=== PATIENT | female | born 1940 | race Caucasian/White ===

== ENCOUNTER 2017-11-23 06:39 | Day surgery (SDC) | payer MEDICARE, SELFPAY ==
[2017-11-11 16:18] VITALS: BMI 22.2
[2017-11-23] VITALS (10 sets, daily range): BP systolic 143–198; BP diastolic 75–85; PULSE 55–61; RESP 12–16; TEMP 36–36.9; O2SAT 95–100; BMI 22.2
--- NOTE | 2017-11-23 07:11 | PM.PREOP ---
Pre-operative Note Interval Note Pre-op Check: History & Physical Reviewed by Physician
[2017-11-23] MEDS: LACTATED RINGERS 1,000 ML 100 ML IV (07:32)
[2017-11-23] MEDS: CEFAZOLIN 2 GM/100 ML FROZ.PIGGY IV (07:56)
--- NOTE | 2017-11-23 08:36 | SUR.OPER ---
Lithotomy on padded OR bed, head on pillow, arms secured on padded arm boards at <90 degrees abduction. Legs secured in padded yellow fins stirrups.
[2017-11-23] MEDS: BUPIVACAINE 0.25% W/ EPI 50 ML VIAL INJ (08:42)
[2017-11-23] MEDS: SODIUM CHLORIDE 0.9% 100 ML INJ (08:48)
--- NOTE | 2017-11-23 09:51 | SUR.PHASEI ---
pt arrived from surgery. Currently awake and alert. dr Dillard into see pt. No complaints voiced. pt pleasant and cooperative.
[2017-11-23] MEDS: OXYCODONE/ACETAMINOPHEN 5/325 TABLET 1 TAB PO (09:57)
--- NOTE | 2017-11-23 10:39 | SUR.PHASEII ---
pt arrived tp opd from pacu, bed low locked call chang in hand, drinking fluids, denies pain.
--- NOTE | 2017-11-23 10:40 | SUR.PHASEII ---
dockery with pink tinged urine, no clots.
--- NOTE | 2018-02-18 14:22 | P.OP_ITS ---
Operative Date/Time/Diagnoses Date of procedure: 11/23/17 Time of procedure: 09:50 Post-op diagnosis: same Procedure: Procedures Operation Date: 11/23/17 07:45 Actual Procedures Side Surgeon p TVT W/Cystoscopy Maria R Dillard MD TVT with cystoscopy Indications: Stress urinary incontinence Increased urethrovesical angle with Valsalva Surgeon: Maria R Dillard [facility] Former: [facility] Anesthesia Type: General Operative Notes Findings: On cystoscopy, TVT not in the bladder Closure Type: primary Specimen(s): none Applied: catheter Estimated blood loss (mL): 10 Blood products transfused: none Procedure in detail: The patient was taken to the operating room where she was placed in the dorsal supine position. After adequate general tracheal anesthesia was achieved, she was placed in the dorsal lithotomy position, and prepped and draped in the usual sterile fashion. A time-out was performed. A weighted speculum was placed into the vagina. The patient's eyes were placed parallel to the floor. The midline on the patient's abdomen was marked. 100 cc of sterile saline mixture with 0.25% Marcaine was injected behind the pubic symphysis into the space of Retzius, after the bladder had been emptied. This was performed with a spinal needle. Attention was then turned to the vagina. 5 cc of 0.25% Marcaine with epinephrine were injected submucosally in the midline approximately 2 cm away from the urethral meatus. A 1 cm incision was made approximately 1-1/2 cm away from the urethral meatus. This was dissected out laterally with a Metzenbaum scissors. A rigid catheter was placed into the bladder. With the bladder neck retracted away from the patient's right side, 10 cc of 0.25% Marcaine with epinephrine were injected along the path of the DVT. This space was then dissected to the 7. Hegar dilator. This was repeated on the patient's left side with the bladder neck retracted away from the patient's left side. The TVT was directed toward the patient's right shoulder after the bladder neck risks retracted away from the patient's right side. The urogenital diaphragm was perforated and the DVT directed up behind the pubic symphysis to exit the skin approximately 2- 2 1/2 cm away from the midline. All of this was repeated on the patient's left side after the left space had been dissected. And the bladder neck retracted away from the patient' s left side. The rigid portion of the catheter was removed from the bladder. The bladder was filled with 240 cc of sterile saline. Cystoscopy was performed and the TVT was in the bladder on the left side. The bladder was drained. The TVT was redirected on the patient's left side directed towards the left shoulder, perforating the urogenital diaphragm, and then coming up behind the pubic symphysis. The bladder was refilled and a cystoscopy was performed which revealed the TVT not in the bladder on the left side. The bladder was drained. The TVT was pulled up with care not to over tighten below the urethra. The patient was made to cough there are initially was some small leakage of urine. The TVT was pulled slightly tighter. On the next cough there was just 1 drop of urine. The excess TVT was cut below the skin line on the abdomen. The vaginal mucosa was closed with 4 O Vicryl in a running interlocking fashion. The urine was clear at the end of the case. A Rea catheter remained in the bladder. Sponge, lap, and instrument counts were correct x2. The patient tolerated the procedure well, and was taken to PACU in stable condition Complications: none Post-operative Condition: stable Disposition: PACU Plan for aftercare: Home after recovery
== END 2017-11-23 11:25 | disposition home or self-care (01) ==
PROVIDERS: PCP Internal Medicine; Visit Provider Obstetrics & Gynecology
PROC: 0TSD0ZZ Reposition Urethra, Open Approach (ICD-10-PCS; CPT 57288; principal; 2017-11-23 07:45)
DX: Z87.891 Personal history of nicotine dependence (principal); I10 Essential (primary) hypertension; E03.9 Hypothyroidism, unspecified
CPT/HCPCS: 57288; J0690; J2405; J2704; J3010

== ENCOUNTER 2017-11-24 22:20 | Emergency (ER) | payer MEDICARE, SELFPAY ==
[2017-11-24 22:22] VITALS: BP 113/67; PULSE 65; RESP 14; O2SAT 100; BMI 22.1
--- NOTE | 2017-11-24 23:15 | PC.NURSE ---
Pt states she had bladder tuck surgery yesterday and has indwelling Rea cathether. States there is debris in the drainage bag and for 45 min she did not have any drainage. Requesting to have catheter flushed out. Reports her bladder feels distended. Scant amount of small red sediment noted in the Rea drainage bag. Denies any pain or any other symptoms.
[2017-11-25 00:20] LABS: Appearance Urine UA SL CLOUDY; Bilirubin Urine UA NEGATIVE (NEGATIVE); Color Urine UA YELLOW; Glucose Urine UA NEGATIVE (Normal); Ketones Urine UA NEGATIVE (NEGATIVE); Leukocyte Esterase Urine UA NEGATIVE (NEGATIVE); Nitrite Urine UA Negative (Negative); Occult Blood Urine UA 3+ (Negative); Protein Urine UA 1+ (Negative); Urobilinogen Urine UA 0.2 E.U./dL (0.2)
[2017-11-25 00:22] LABS: RBC Urine 30-100/HPF (0-5/HPF); Squamous Epithelial Cell Urine 0-1 /HPF; WBC Urine 0-1/HPF (0-5/HPF)
[2017-11-25 00:23] LABS: Bacteria Urine Few (2-10); Culture Indicated Urine Specimen Cultured; Hyaline Casts Urine 0-1/LPF
--- NOTE | 2017-12-11 10:08 | ED.FEMALEGU ---
HPI - Female Genitourinary General Chief complaint: Urogenital-Female Stated complaint: urinary catheter not draining. History of Present Illness HPI Narrative: HPI 77-year-old female presents for management of a nondraining Rea catheter that was placed one day prior during a bladder suspension surgery. Cather is not trained for one hour. Patient notes mild suprapubic discomfort. Patient denies fevers, chills, or worsening pain. ROS with no recent constitutional symptoms. Exam Gen: Pleasant, nontoxic-appearing, resting comfortably. HEENT: NC, AT, PEERL, EOMI. Resp: Unlabored respirations with a normal work of breathing. Card: Extremities warm and well perfused. GI: Non-distended. : mild suprapubic tenderness to palpation. MSK: No visible deformities, strength and tone without visually appreciable deficit. Neuro: AO x 3, no facial asymmetry, vision and hearing WNL. Heme/Lymph: Deferred Skin: Normal color with no visible lesions (other than noted above). Psych: Mood and affect appropriate. MDM Previous chart, nursing note, and vitals reviewed. A/P: 77-year-old female presents for management of a nondraining Rea catheter that was placed one day prior during a bladder suspension surgery. UA ordered, Rea catheter irrigated, patient with good urine drainage. Patient eloped from the emergency department prior to completion of care or urinalysis resulting. Given her absence of fever, chills, malaise, or for their findings clearly suggestive of urinary tract infection antibiotics were not prescribed. Patient to follow up with her [facility]. Impression: obstructed Rea catheter (please reference below for remainder of encounter information) Related Data Home Medications Medication Instructions Recorded Confirmed BIOTIN 1,000 mcg PO QDAY #0 02/28/16 12/07/17 ascorbic acid (vitamin C) 500 mg PO QDAY #0 tab 02/28/16 12/07/17 bupropion HCl [Wellbutrin SR] 100 mg PO QDAY #0 02/28/16 12/07/17 cholecalciferol (vitamin D3) 1 tab PO QDAY #0 05/09/16 12/07/17 [Vitamin D3] levothyroxine 88 mcg PO QAM #0 05/09/16 12/07/17 atorvastatin 10 mg PO DAILY 11/23/17 12/07/17 levothyroxine 25 mcg PO DAILY 11/23/17 12/07/17 Previous Rx's Medication Instructions Recorded oxycodone-acetaminophen [Percocet] 1 tab PO Q4-6H PRN #20 tab 11/23/17 Allergies Allergy/AdvReac Type Severity Reaction Status Date / Time Sulfa (Sulfonamide Allergy Mild FEELS Verified 12/07/17 13:20 Antibiotics) LIKE BLOOD IS BOILING PFSH Medical History Anterolisthesis (Chronic) Concussion (Chronic) Cystocele (Chronic) Depression (Chronic) GERD (gastroesophageal reflux disease) (Chronic) Hypertension (Chronic) Hyperthyroidism (Chronic 2012) Hypothyroidism (Chronic) Lumbar spondylosis (Chronic) Migraine headache (Chronic) Rectocele (Chronic) OLVIN (stress urinary incontinence, female) (Chronic) Uterine prolapse (Chronic) Hormone receptor positive breast cancer (Resolved 2013) Postmenopausal (Resolved) Surgical History History of lumpectomy (Resolved 2013) Social History household members: none Smoking Status: Former smoker alcohol intake: current Exam Initial Vital Signs Initial Vital Signs: Vital Signs Pulse Rate 65 11/24/17 22:22 Respiratory Rate 14 11/24/17 22:22 Blood Pressure 113/67 11/24/17 22:22 Pulse Oximetry 100 11/24/17 22:22 MDM - Female Genitourinary Lab Data Lab Results 11/24/17 Range/Units 23:45 Urine Color Yellow Urine Appearance Sl cloudy Urine pH 5.0 (4.5-8.0) Ur Specific Justice 1.010 (1.000-1.035) Urine Protein 1+ H (Negative) Urine Glucose (UA) Negative (Normal) g/dL Urine Ketones Negative (NEGATIVE) Urine Occult Blood 3+ H (Negative) Urine Nitrate Negative (Negative) Urine Bilirubin Negative (NEGATIVE) Urine Urobilinogen 0.2 (0.2) E.U./dL Ur Leukocyte Esterase Negative (NEGATIVE) Urine RBC 30-100/hpf H (0-5/HPF) Urine WBC 0-1/hpf (0-5/HPF) Ur Squamous Epith Cells 0-1 /hpf Urine Bacteria Few (2-10) H (None) Hyaline Casts 0-1/lpf (None) Ur Culture Indicated? Specimen cultured Micro UA Comment Not Reportable Discharge Plan Departure Patient Disposition: Left Against Medical Advice Discharge Date/Time: 11/25/17 00:44 Interventions: ED Discharge Assessment Last Done: 11/25/17 00:42 Prescriptions: No Action bupropion HCl [Wellbutrin SR] 100 MG tablet extended release 12 hr 100 mg PO QDAY Qty: 0 RF: 0 ascorbic acid (vitamin C) 500 MG tablet 500 mg PO QDAY Qty: 0 RF: 0 BIOTIN 1,000 mcg PO QDAY Qty: 0 RF: 0 levothyroxine 88 MCG tablet 88 mcg PO QAM Qty: 0 RF: 0 cholecalciferol (vitamin D3) [Vitamin D3] 2,000 UNIT tablet 1 tab PO QDAY Qty: 0 RF: 0 atorvastatin 10 mg tablet 10 mg PO DAILY RF: 0 levothyroxine 50 mcg tablet 25 mcg PO DAILY RF: 0 oxycodone-acetaminophen [Percocet] 5-325 mg tablet 1 tab PO Q4-6H PRN (Reason: pain) Qty: 20 RF: 0 Stand Alone Forms: Against Medical Advice
== END 2017-11-25 00:44 | disposition left against medical advice (07) ==
PROVIDERS: Emergency Provider Emergency Medicine; Family Provider Internal Medicine; PCP Internal Medicine; Referring Provider Obstetrics & Gynecology
DX: T83.091A Other mechanical complication of indwelling urethral catheter, initial encounter (principal)
CPT/HCPCS: 51700; 51798; 81001; 87086; 99283

== ENCOUNTER → 2017-11-30 17:13 | Outpatient (CLI) | payer MEDICARE, SELFPAY | PROVIDERS: Family Provider Internal Medicine; PCP Internal Medicine; Visit Provider Obstetrics & Gynecology | DX: R32 Unspecified urinary incontinence (principal) | CPT/HCPCS: 87086 ==

== ENCOUNTER → 2017-12-04 09:48 | Outpatient (CLI) | payer MEDICARE, SELFPAY ==
[2017-12-04 11:49] LABS: Thyroid Stimulating Hormone 3.64 uIU/mL (0.47-4.68)
== END ==
PROVIDERS: PCP Internal Medicine; Visit Provider Internal Medicine
DX: E03.9 Hypothyroidism, unspecified (principal)
CPT/HCPCS: 36415; 84443

== ENCOUNTER → 2018-02-04 08:33 | Outpatient (CLI) | payer MEDICARE, SELFPAY ==
[2018-02-04 10:04] LABS: Alanine Aminotransferase 21 IU/L (9-52); Aspartate Aminotransferase 24 IU/L (14-36); BUN Creatinine Ratio 15.7 (6-22); Blood Urea Nitrogen 11 mg/dL (7-17); Calcium 9.8 mg/dL (8.4-10.2); Carbon Dioxide 30 mmol/L (22-32); Chloride 100 mmol/L (98-107); Cholesterol 254 mg/dL (140-199); Estimated Glomerular Filt Rate > 60.0 mL/min (>60); Glucose 99 mg/dL (80-110); HDL Cholesterol 84 mg/dL (40-60); HEMOLYSIS < 15 (0-50); LDL Cholesterol Calculated 150 mg/dL (<100); Potassium 4.8 mmol/L (3.4-5.1); Sodium 139 mmol/L (137-145); Triglycerides 98 mg/dL (35-150)
[2018-02-04 10:34] LABS: TSH w/ Reflex to FT4 6.15 uIU/mL (0.47-4.68)
[2018-02-04 11:37] LABS: Free T4, Direct Thyroxine 0.98 ng/dL (0.78-2.19)
== END ==
PROVIDERS: Family Provider Internal Medicine; PCP Internal Medicine; Visit Provider Internal Medicine
DX: E03.9 Hypothyroidism, unspecified (principal); E78.5 Hyperlipidemia, unspecified; Z00.00 Encounter for general adult medical examination without abnormal findings
CPT/HCPCS: 36415; 80048; 80061; 84439; 84443; 84450; 84460

== ENCOUNTER → 2018-04-28 09:39 | Outpatient (CLI) | payer MEDICARE, SELFPAY | PROVIDERS: PCP Internal Medicine; Visit Provider Obstetrics & Gynecology | DX: E03.9 Hypothyroidism, unspecified (principal) | CPT/HCPCS: 81001; 87086 ==

== ENCOUNTER → 2018-04-28 10:06 | Outpatient (CLI) | payer MEDICARE, SELFPAY ==
[2018-04-28 11:07] LABS: Appearance Urine UA CLOUDY; Bilirubin Urine UA NEGATIVE (NEGATIVE); Color Urine UA YELLOW; Glucose Urine UA NEGATIVE (Normal); Ketones Urine UA NEGATIVE (NEGATIVE); Leukocyte Esterase Urine UA 2+ (NEGATIVE); Nitrite Urine UA NEGATIVE (Negative); Occult Blood Urine UA 3+ (Negative); Protein Urine UA 2+ (Negative); Specific Gravity Urine UA 1.025 (1.000-1.035); Urobilinogen Urine UA 0.2 E.U./dL (0.2)
[2018-04-28 11:35] LABS: Bacteria Urine Moderate (10-30); Culture Indicated Urine Specimen Cultured; RBC Urine >100/HPF (0-5/HPF); WBC Urine >100/HPF (0-5/HPF)
[2018-04-28 12:39] LABS: TSH w/ Reflex to FT4 2.24 uIU/mL (0.47-4.68)
== END ==
PROVIDERS: Obstetrics & Gynecology; Family Provider Internal Medicine; PCP Internal Medicine; Visit Provider Internal Medicine
DX: E03.9 Hypothyroidism, unspecified (principal)
CPT/HCPCS: 36415; 81001; 84443; 87077; 87086; 87186

== ENCOUNTER → 2018-05-24 12:30 | Outpatient (CLI) | payer MEDICARE, SELFPAY ==
--- NOTE | 2018-05-24 | DI.RAD.S_ITS ---
PROCEDURE: XR CHEST 2V INDICATIONS: Acute bronchitis, unspecified TECHNIQUE: 2 views of the chest were acquired. COMPARISON: [facility], , CHEST 2 VIEW, 10/06/2007, 10:11. FINDINGS: Surgical changes and devices: None. Lungs and pleura: No pleural effusions or pneumothorax. Lungs are clear. Mediastinum: Mediastinal contours are normal. Heart size is normal. Bones and chest wall: No suspicious bony abnormalities. Soft tissues appear unremarkable. IMPRESSION: No acute cardiopulmonary pathology. Dictated by: Shivam Pantoja M.D. on 05/24/2018 at 13:19 Approved by: Shivam Pantoja M.D. on 05/24/2018 at 13:22
== END ==
PROVIDERS: Family Provider Internal Medicine; PCP Internal Medicine; Visit Provider Student in an Organized Health Care Education/Training Program
DX: J20.9 Acute bronchitis, unspecified (principal)
CPT/HCPCS: 71046

== ENCOUNTER → 2018-07-21 09:19 | Outpatient (CLI) | payer MEDICARE, SELFPAY ==
--- NOTE | 2018-07-21 | DI.MRI.S_ITS ---
PROCEDURE: MR SHOULDER RT WO CON INDICATIONS: PAIN IN RIGHT SHOULDER TECHNIQUE: Noncontrast oblique coronal T2 fast spin echo with fat saturation, oblique sagittal T1 spin echo and T2 fast spin echo with fat saturation, axial T1 spin echo and T2 fast spin echo with fat saturation through the shoulder. COMPARISON: None. FINDINGS: Image quality: Excellent. Rotator cuff: There is high-grade partial-thickness versus full-thickness tear of the supraspinatus tendon along both articular and bursal surfaces. The infraspinatus, and subscapularis tendons appear intact throughout but is thickened and heterogeneous in signal consistent with tendinitis. Sagittal images demonstrate no muscle atrophy. Bones and bursae: No bone marrow contusions or fractures. There is severe acromioclavicular joint degeneration and moderate glenohumeral joint degeneration. The acromion demonstrates conventional anatomy, without an os acromiale. There is a small amount of subacromial-subdeltoid or subcoracoid bursal fluid, consistent with mild bursitis. Capsule and soft tissues: There is degenerative fraying of the superior labrum. In the absence of intra-articular contrast, the glenohumeral ligaments appear intact. The long head of the biceps tendon demonstrates normal location and morphology. The rotator interval appears normal, without fibrosis. The coracohumeral ligament is normal in thickness. IMPRESSION: 1. High-grade partial-thickness versus full-thickness tear of the supraspinatus tendon. 2. Infraspinatus and subscapularis tendinitis. 3. 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 4. Degenerative tear of the superior labrum. 5. Mild subacromial/subdeltoid bursitis. Dictated by: Annabel Barba M.D. on 07/21/2018 at 10:54 Approved by: Annabel Barba M.D. on 07/22/2018 at 9:56
== END ==
PROVIDERS: Family Provider Internal Medicine; PCP Internal Medicine; Visit Provider Internal Medicine
DX: M25.511 Pain in right shoulder (principal); M75.101 Unspecified rotator cuff tear or rupture of right shoulder, not specified as traumatic; M75.91 Shoulder lesion, unspecified, right shoulder; M19.011 Primary osteoarthritis, right shoulder; S43.491A Other sprain of right shoulder joint, initial encounter; M75.51 Bursitis of right shoulder
CPT/HCPCS: 73221

== ENCOUNTER 2018-08-25 07:05 | Day surgery (SDC) | payer MEDICARE, SELFPAY ==
[2018-08-25] VITALS (7 sets, daily range): BP systolic 134–164; BP diastolic 77–87; PULSE 63–68; RESP 13–18; TEMP 36.2–36.8; O2SAT 92–99; BMI 22.6
[2018-08-25] MEDS: SODIUM CHLORIDE 0.9% 1,000 ML 100 ML IV (07:34)
--- NOTE | 2018-08-25 08:31 | PM.HP.1 ---
History of Present Illness Chief complaint: [id number] Patient History Medical History Anterolisthesis (Chronic) Concussion (Chronic) Cystocele (Chronic) Depression (Chronic) GERD (gastroesophageal reflux disease) (Chronic) Hypertension (Chronic) Hyperthyroidism (Chronic 2012) Hypothyroidism (Chronic) Lumbar spondylosis (Chronic) Migraine headache (Chronic) Rectocele (Chronic) OLVIN (stress urinary incontinence, female) (Chronic) Uterine prolapse (Chronic) Hormone receptor positive breast cancer (Resolved 2013) Postmenopausal (Resolved) Surgical History History of lumpectomy (Resolved 2013) Social History household members: none Smoking Status: Former smoker alcohol intake: current Family & Social History Social History: household members none Tobacco & Substance use: Smoking Status Former smoker alcohol intake current alcohol intake frequency 0-2 drinks per day Substance Use Type does not use Meds Home Medications Medication Instructions Recorded Confirmed Type BIOTIN 1,000 mcg PO QDAY #0 02/28/16 03/02/18 History ascorbic acid (vitamin C) 500 mg PO QDAY #0 tab 02/28/16 03/02/18 History cholecalciferol (vitamin D3) 1 tab PO QDAY #0 05/09/16 03/02/18 History [Vitamin D3] oxybutynin chloride 5 mg tablet 2.5 mg PO Q12H #20 tab 01/05/18 03/02/18 Rx levothyroxine 50 mcg tablet 25 mcg PO DAILY 03/02/18 03/02/18 History mirabegron ER 25 mg 25 mg PO DAILY #30 tab 06/22/18 Rx tablet,extended release 24 hr bupropion HCl SR 100 mg tablet,12 100 mg PO BID #0 each 07/21/18 07/21/18 History hr sustained-release Allergies Allergy/AdvReac Type Severity Reaction Status Date / Time Sulfa (Sulfonamide Allergy Mild FEELS Verified 03/02/18 11:02 Antibiotics) LIKE BLOOD IS BOILING Exam Vital Signs (past 8 hours): - 08/25/18 07:20 Temperature 98.3 F Pulse Rate 63 Respiratory Rate 15 Blood Pressure 164/77 H Pulse Oximetry 94 Oxygen Delivery Method Room Air Narrative Exam Narrative: Awake alert oriented x3, no acute distress, regular rate rhythm, abdomen soft nontender nondistended, no lower extremity edema Assessment & Plan Assessment & Plan narrative: Dysphagia for EGD
[2018-08-25] MEDS: fentaNYL 250 MCG/5 ML INJ IV (08:39)
[2018-08-25] MEDS: MIDAZOLAM 5 MG/5 ML VIAL IV (08:39)
--- NOTE | 2018-08-25 08:57 | PM.OP.ENDO ---
Operative Date/Time/Diagnoses Date of procedure: 08/25/18 Procedure & Clinicians Study performed: EGD with dilation Indications: Dysphagia, GERD Moderate conscious sedation was administered by the endoscopy nurse and supervised by the endoscopist. The following parameters were monitored: Oxygen saturation, heart rate, blood pressure, and response to care. Procedure Notes Procedure in detail: Prior to the procedure, history and physical was performed, and patient medications and allergies were reviewed. Preprocedure nursing history and assessment was reviewed. Patient identification and proposed procedure were verified by the physician and nurse in the procedure room. The physical status of the patient was reassessed after the procedure. After informed consent was obtained including risks, benefits, and alternatives, the scope was passed under direct vision. Throughout the procedure, the patient's blood pressure, pulse, and oxygen saturations were monitored continuously. The upper endoscope was introduced through the mouth and advanced to the 2nd portion of the duodenum. Retroflexion was performed in the stomach. The patient tolerated the procedure well. The upper and middle thirds of the esophagus were normal appearing. At the lower esophagus, a mild, nonobstructing Schatzki's ring was noted. This was dilated with a 48 Tristanian followed by 51 Tristanian Savary dilator. The patient did not tolerate the 54 Tristanian dilator. So, a balloon dilator was used to dilate the Schatzki's ring up to 18 mm. The entire stomach was normal appearing The entire examined duodenum was normal appearing Impression: Mild, nonobstructing Schatzki's ring at the lower esophagus. Dilated up to 18 mm Normal appearing stomach Normal-appearing 1st and 2nd portions of the duodenum Sedation minutes: 21 Plan for aftercare: Recommendations: Resume home medications Follow anti-reflux diet and lifestyle Follow-up in GI clinic as previously scheduled Discharge home with escort
--- NOTE | 2018-08-25 09:48 | SUR.PHASEII ---
Pleasant, cheerful, tolerating PO well. Acknowledges that she has all of her belongings. complimentary of staff. Clothing given; ride is on the way.
== END 2018-08-25 09:50 | disposition home or self-care (01) ==
PROVIDERS: Family Provider Internal Medicine; PCP Internal Medicine; Visit Provider Internal Medicine
PROC: 0DJ08ZZ Inspection of Upper Intestinal Tract, Via Natural or Artificial Opening Endoscopic (ICD-10-PCS; CPT 43235; principal; 2018-08-25 08:30)
DX: K22.2 Esophageal obstruction (principal); K21.9 Gastro-esophageal reflux disease without esophagitis
CPT/HCPCS: 43248; J2250; J3010

== ENCOUNTER → 2018-09-08 10:36 | Outpatient (CLI) | payer MEDICARE, SELFPAY ==
[2018-09-08 11:14] LABS: Cholesterol 256 mg/dL (140-199); HDL Cholesterol 84 mg/dL (40-60); LDL Cholesterol Calculated 153 mg/dL (<100); Triglycerides 97 mg/dL (35-150)
== END ==
PROVIDERS: PCP Internal Medicine; Visit Provider Internal Medicine
DX: E78.5 Hyperlipidemia, unspecified (principal)
CPT/HCPCS: 36415; 80061

== ENCOUNTER → 2018-10-20 11:12 | Outpatient (CLI) | payer MEDICARE, SELFPAY ==
--- NOTE | 2018-10-20 | DI.MG.S_ITS ---
BILATERAL DIGITAL SCREENING MAMMOGRAM 3D/2D WITH CAD: 10/20/2018 CLINICAL: Routine screening. Personal history of right breast cancer. Comparison is made to exams dated: 11/21/2016 mammogram, 06/25/2017 mammogram - [facility], and 05/21/2016 mammogram - [facility]. The tissue of both breasts is heterogeneously dense. This may lower the sensitivity of mammography. Current study was also evaluated with a Computer Aided Detection (CAD) system. There are benign post operative findings in the right breast. No significant masses, calcifications, or other findings are seen in either breast. There has been no significant interval change. IMPRESSION: There is no mammographic evidence of malignancy. A 1 year screening mammogram is recommended. This exam was interpreted at Station ID: [id number]. NOTE: For mammograms, a report in lay terms will be sent to the patient. Approximately 15% of breast malignancies will not be visualized mammographically. In the management of a palpable breast mass, a negative mammogram must not discourage biopsy of a clinically suspicious lesion. Electronically Signed By: Abraham chiu/darian:10/20/2018 11:43:39 copy to: COMPA DIAZ letter sent: Normal Exam ACR BI-RADS Category 2: Benign Finding(s) [id number]
== END ==
PROVIDERS: PCP Internal Medicine; Referring Provider Internal Medicine; Visit Provider Internal Medicine
DX: Z12.31 Encounter for screening mammogram for malignant neoplasm of breast (principal); Z85.3 Personal history of malignant neoplasm of breast
CPT/HCPCS: 77063; 77067

== ENCOUNTER → 2018-11-19 14:15 | Outpatient (CLI) | payer MEDICARE, SELFPAY ==
[2018-11-19 15:10] LABS: Alanine Aminotransferase 16 IU/L (9-52); Albumin 4.4 g/dL (3.5-5.0); Albumin Globulin Ratio 1.6 (1.0-2.8); Alkaline Phosphatase 88 U/L (38-126); Aspartate Aminotransferase 25 IU/L (14-36); BUN Creatinine Ratio 24.3 (6-22); Bilirubin Total 0.5 mg/dL (0.2-1.3); Blood Urea Nitrogen 17 mg/dL (7-17); Calcium 9.6 mg/dL (8.4-10.2); Carbon Dioxide 27 mmol/L (22-32); Chloride 100 mmol/L (98-107); Cholesterol 259 mg/dL (140-199); Estimated Glomerular Filt Rate > 60.0 mL/min (>60); Globulin 2.7 g/dL (1.7-4.1); Glucose 96 mg/dL (80-110); HDL Cholesterol 80 mg/dL (40-60); HEMOLYSIS < 15 (0-50); LDL Cholesterol Calculated 127 mg/dL (<100); Potassium 4.6 mmol/L (3.4-5.1); Sodium 137 mmol/L (137-145); Total Protein 7.1 g/dL (6.3-8.2); Triglycerides 259 mg/dL (35-150)
[2018-11-19 16:17] LABS: Free T4, Direct Thyroxine 0.73 ng/dL (0.78-2.19)
[2018-11-19 20:38] LABS: Free T3, Triiodothyronine Free 3.01 pg/mL (2.77-5.27)
== END ==
PROVIDERS: PCP Internal Medicine; Visit Provider Internal Medicine
DX: E03.9 Hypothyroidism, unspecified (principal); E78.5 Hyperlipidemia, unspecified; R53.83 Other fatigue
CPT/HCPCS: 36415; 80053; 80061; 84439; 84443; 84481

== ENCOUNTER → 2018-11-24 07:55 | Outpatient (CLI) | payer MEDICARE, SELFPAY ==
--- NOTE | 2018-11-24 | DI.ECHO.S_ITS ---
[facility]---------+ [facility] +---------+ : : [address] [place] : : : : [id number] : : : : Phone: [phone] Echocardiogram Report + + :Name: MARY ECHEVERRIA Study Date: 11/24/2018 Height: 66 in : :[facility] Weight: 140 lb : : Gender: Female BSA: 1.7 m2 : :: 1940 Age: 78 yrs BP: 150/73 mmHg: :Reason For Study: FATIGUE : : Performed By: Awais Caputo : :Referring: SOCORRO EPPERSON : + + Interpretation Summary 1) Normal left ventricular thickness, size, wall motion, and systolic function (EF 60-65%). 2) Normal right ventricular size and function. 3) No significant valvular abnormalities. 4) No prior Echo available for comparison. Procedure: A two-dimensional transthoracic echocardiogram with color flow and Doppler was performed. The study quality was technically good. There is no prior echocardiogram noted for this patient. The patient received her shingles immunization 01/09 and says she has felt fatigued ever since. The patient was in normal sinus rhythm during the exam. Left Ventricle: The left ventricle is normal in size. There is normal left ventricular wall thickness. The ejection fraction is estimated to be 60-65%. Left ventricular systolic function is normal. There are no focal wall motion abnormalities. Diastolic parameters suggest a relaxation abnormality of the left ventricle, consistent with probable normal filling pressures. Right Ventricle: The right ventricle is normal in size and function. A moderator band is seen in the right ventricle. Atria: The left atrium is moderately dilated. Right atrial size is normal. The interatrial septum is intact with no evidence for an atrial septal defect. Mitral Valve: The mitral valve is normal in structure and function. There is trace mitral regurgitation. Aortic Valve: The aortic valve is normal in structure and function. The aortic valve is trileaflet. The aortic valve opens well. There is no aortic valve stenosis. No aortic regurgitation is present. Tricuspid Valve: The tricuspid valve is normal in structure and function. There is mild tricuspid regurgitation. The right ventricular systolic pressure is estimated to be at least 24 mmHg based on an estimated right atrial pressure of 3 mm Hg. Pulmonic Valve: The pulmonic valve is normal in structure and function. There is trace pulmonic regurgitation. Great Vessels: The aortic root is normal size. The dimensions of the ascending aorta are normal. The pulmonary artery is normal size. The IVC is of normal diameter and collapses greater than 50% with a sniff. This suggests a low right atrial pressure of 3 mm Hg. Pericardium/ Pleura There is no pericardial effusion. There is no pleural effusion. MMode/2D Measurements & Calculations LVIDd: 4.4 cm LVOT diam: 1.9 cm LVIDs: 2.4 cm Ao root diam: 3.7 cm FS: 46.4 % Aortic Jxn: 2.4 cm EPSS: 0.33 cm asc Aorta Diam: 3.2 cm IVSd: 0.82 cm Ao Arch Diam (Prox Trans): 2.2 cm LVPWd: 0.96 cm LV clarke. diameter/BSA (cm/m^2): 2.6 LV sys. diameter/BSA (cm/m^2): 1.4 LA dimension: 2.7 cm RA long axis: 5.2 cm LA A2 area: 21.4 cm2 RA area: 14.9 cm2 LA A4 area: 21.2 cm2 RA vol: 36.3 ml LA length (vol): 5.4 cm RA : 21.1 ml/m2 LA vol: 71.1 ml IVC diam: 2.1 cm LA vol index: 41.4 ml/m2 Doppler Measurements & Calculations Ao V2 max: 120.7 cm/sec LVOT Max Gustavo: 103.6 cm/sec Ao V2 mean: 91.5 cm/sec LV V1 max P.3 mmHg Ao max P.8 mmHg LV V1 VTI: 26.0 cm Ao mean P.5 mmHg SHWETA(I,D): 2.3 cm2 Ao V2 VTI: 33.8 cm SHWETA(V,D): 2.5 cm2 sev ratio: 0.77 SHWETA indexed to BSA (cm^2/m^2): 1.3 MV E max gustavo: 81.6 cm/sec TR max gustavo: 230.4 cm/sec MV A max gustavo: 66.8 cm/sec TR max P.2 mmHg MV E/A: 1.2 PA V2 max: 69.4 cm/sec Med Peak E' Gustavo: 6.2 cm/sec PA V2 mean: 54.1 cm/sec E/E' med: 13.2 PA mean P.2 mmHg Lat Peak E' Gustavo: 6.0 cm/sec PA pr(Accel): 5.8 mmHg E/E' lat: 13.6 PA Accel Time: 0.17 sec E/e' average: 13.4 MV dec time: 0.17 sec SV(LVOT): 76.2 ml Reading Physician:03:04 PM
== END ==
PROVIDERS: PCP Internal Medicine; Visit Provider Internal Medicine
DX: I07.1 Rheumatic tricuspid insufficiency (principal); R53.83 Other fatigue
CPT/HCPCS: 93306

== ENCOUNTER → 2019-04-06 10:11 | Outpatient (CLI) | payer MEDICARE, SELFPAY ==
--- NOTE | 2019-04-06 | DI.RAD.S_ITS ---
PROCEDURE: FL BARIUM SWALLOW INDICATIONS: Dysphagia, pharyngoesophageal phase COMPARISON: Located Within [facility], CR, XR BARIUM SWALLOW, 03/19/2018, 9:24. FINDINGS: Function: There is normal esophageal peristalsis. No elicited gastroesophageal reflux. There is normal transit of a calibrated barium tablet through the esophagus into the stomach without delay. Morphology: Air-contrast images demonstrate normal mucosal morphology. There is a small cricopharyngeal bar. Single contrast views show no esophageal strictures, extrinsic mass effects, or diverticula. Limited images of the stomach demonstrate normal appearance. IMPRESSION: Small cricopharyngeal bar, which may represent the sequela of chronic gastroesophageal reflux. Dictated by: José Cash M.D. on 04/06/2019 at 13:35 Approved by: José Cash M.D. on 04/06/2019 at 13:38
== END ==
PROVIDERS: PCP Internal Medicine; Referring Provider Internal Medicine; Visit Provider Internal Medicine Gastroenterology
DX: R13.14 Dysphagia, pharyngoesophageal phase (principal)
CPT/HCPCS: 74220

== ENCOUNTER → 2019-04-12 10:59 | Outpatient (CLI) | payer MEDICARE, SELFPAY | PROVIDERS: PCP Internal Medicine; Visit Provider Obstetrics & Gynecology | DX: N39.41 Urge incontinence (principal) | CPT/HCPCS: 87086 ==

== ENCOUNTER 2019-06-29 10:30 | Outpatient (RCR) | payer MEDICARE, SELFPAY ==
--- NOTE | 2019-05-24 14:01 | PT.OPPOC ---
Physical, Occupational & Speech Therapy At [facility] Current Diagnoses Urge incontinence (05/24/19) Visit Care Team Role Provider Type Alice Lucero MD Primary Care Provider Physician Specialty: Family Practice Address: [address] [place] [address], [place], [address] Email: [email or web address] Maria R Dillard MD Attending Provider Physician Specialty: VP C[employer] MANAGEMENT Address: [address] [place] [address], [id number] Email: [email or web address] Plan Of Care PT-OP-T Assessment and Plan Start: 05/24/19 08:51 Freq: Status: Active Protocol: Document 05/24/19 09:49 [facility] (Rec: 05/26/19 13:58 [facility] [email or web address]) Physical Therapy Assessment Goals Four Impairment myofasical tightness of the suprapubic region and upper abdominal wall Short Term Goal (STG) Briseida is educated in a stretching program for the abdominal wall and chest to decrease downward pressure on the bladder Three Impairment weakness of the lower abdominal musculature Body Die Maker Goal (LTG) Veronica is able to strengthen the transverse abdominal wall and decrease tension in the upper abdominal wall decreasing strain down on the bladder LTG Duration 8 weeks Two Impairment Decreased pelvic floor endurance Short Term Goal (STG) Veronica is able to improve her endurance of her pelvic floor contractions to 10 second hold time in supine STG Duration 4-5 weeks Half-Way Goal (LTG) Veronica is able to sustain a pelvic floor contraction for 10 seconds in standing LTG Duration 8 weeks One Impairment urinary urge incontinence Short Term Goal (STG) Briseida is educated on bladder dietary irritants and urge deference technique STG Duration 2 weeks Body Die Maker Goal (LTG) Briseida is able to decrease her leakage from 3 times per day to 0-1 time per day and is no longer having to wear maxi pads LTG Duration 8 weeks Assessment Summary Assessment Briseida presents to physical therapy with primarily urge incontinence symptoms. She has a history of a bladder sling a year and a half ago. She does feel some pelvic pressure with standing. She denies symptoms of urinary stress incontinence. We discussed dietary irritants today and Briseida reports approximately 3 glasses of wine per night and 3-4 glasses of water during the day. She was educated today on using a bladder diary to track voids as well as experimenting with decreasing bladder irritants. She was not prepared for a vaginal examination today so we started with EMG biofeedback and will complete the rest of the examination next visit. Briseida does have the ability to rest at baseline but there was a great deal of fasciculations and spasms present. Her endurance of her pelvic floor is very limited. With palpation today there is tightness of the upper abdominal wall and in the suprapubic fascia above the bladder. Treatment will include bladder retraining, MFR techniques for the abdominal wall, pelvic floor endurance training and HEP Physical Therapy Plan Frequency and Duration Frequency of Treatment 1x/Week Duration of Treatment 8 Plan of Care Start Date 05/24/19 Plan of Care End Date 07/19/19 Therapeutic Interventions Therapeutic Interventions Home Exercise Program,Manual Therapy,Neuromuscular Re- education,Patient/Caregiver Education,Self-Care/Home Management,Soft Tissue Mobilization,Therapeutic Exercises Next Visit Focus/Plan Next Note Type Treatment Note Next Visit Plan begin stretches for the anterior chest and abdominal wall including foam roll and cobra stretch, review bladder diary, pelvic floor internal assessment, EMG biofeedback for neuro re-education of the pelvic floor. Plan of Care Dates Plan of Care Start Date 05/24/19 Plan of Care End Date 07/19/19 Electronically Signed by: Georgette Downs, PT 05/26/19 2522 Please Sign and Return: I have reviewed this Plan of Care and certify that the skilled therapy services above are required to meet the patient?s needs. Physician Signature Date Printed Name and Credentials Clinical Instructor Signature Printed Name and Credentials
--- NOTE | 2019-05-26 13:59 | PT.OIE ---
Current Diagnoses Urge incontinence (05/24/19) Past Medical History (Last Updated 04/12/19 @ 11:19 by Maria R Dillard MD) Anterolisthesis (Chronic) Concussion (Chronic) Cystocele (Chronic) Depression (Chronic) GERD (gastroesophageal reflux disease) (Chronic) Hormone receptor positive breast cancer (Resolved 2013) Hypertension (Chronic) Hyperthyroidism (Chronic 2013) Hypothyroidism (Chronic) Lumbar spondylosis (Chronic) Migraine headache (Chronic) Postmenopausal (Resolved) Rectocele (Chronic) OLVIN (stress urinary incontinence, female) (Chronic) Urge incontinence (Acute) Uterine prolapse (Chronic) Past Surgical History (Last Reviewed 08/25/18 @ 08:31 by Hugo Castellanos MD) History of lumpectomy (Resolved 2013) Visit Care Team Role Provider Type Alice Lucero MD Primary Care Provider Physician Specialty: Family Practice Address: [address] [place] [address] Email: [email or web address] Maria R Dillard MD Attending Provider Physician Specialty: C[employer]OM [employer] OPERATOR HELPER Address: [address] [place] [address], [facility] Email: [email or web address] Physical Therapy Initial Evaluation PT-OP-A Visit Information Start: 05/24/19 08:51 Freq: Status: Active Protocol: Document 05/24/19 09:49 [facility] (Rec: 05/26/19 13:58 [facility] [email or web address]) Out-Patient Physical Therapy Visit Information Visit Information Visit Type Initial Evaluation Visit Start Time 09:45 Visit Stop Time 10:30 Total Visit Minutes 45 Visit Number 1 Evaluation Information Evaluation Date 05/24/19 PT-OP-B Current Condition Start: 05/24/19 08:51 Freq: Status: Active Protocol: Document 05/24/19 09:49 [facility] (Rec: 05/26/19 13:58 [facility] [email or web address]) Current Condition History of Current Condition History of Current Condition Had a sling surgery 1.5 years ago. She didn't feel it was completely successful. Cant always predict when she has urgency, voids frequency comes on when she is driving and often she will have leakage while driving, if sitting then standing up will experience leakage. Wakes up 2-3 times per night to void. She does completly void when emptying. At times the voiding will be fast and other times slow. Hx of 2 vaginal deliveries. 1-2 bowel movements per day. Wears a pad daily and changes it a couple of times per day. PT-OP-C Subjective Start: 05/24/19 08:51 Freq: Status: Active Protocol: Document 05/24/19 09:49 [facility] (Rec: 05/26/19 13:58 [facility] [email or web address]) Patient Questionnaires Pelvic Pain and Urgency/Frequency Patient Symptom Scale Pelvic Pain Score 8 PT-OP-F Manual Assessment Start: 05/24/19 08:51 Freq: Status: Active Protocol: Document 05/24/19 09:49 [facility] (Rec: 05/26/19 13:58 [facility] [email or web address]) Manual Assessments Soft Tissue Assessment Soft Tissue Mobility Assessment tightness in the suprafascial region of the pelvis and upper abdominal wall PT-OP-I Pelvic Floor Start: 05/24/19 08:51 Freq: Status: Active Protocol: Document 05/24/19 09:49 [facility] (Rec: 05/26/19 13:58 [facility] [email or web address]) Pelvic Floor Assessment Urine Pelvic Floor Surgery Yes Urinary Symptoms Urge Sensation,Falling Out Feeling/Heavy Other Urinary Symptoms urgency is worse after driving and after sitting Leakage Size Medium Leaks Per Day 3 Voiding Frequency every 2 hours Nocturia 2-3 times SEMG (uV) Baseline 0 10 Second Contraction 10.8 Stability of Hold Fair SEMG Stability of Rest Fair Comments Pelvic Floor Comments pt was not prepared for a vaginal examination today. She wanted to wait until next visit. With biofeedback today she is able to rest to baseline but there are many spasms present. Endurance is difficult PT-OP-M Strength Start: 05/24/19 08:51 Freq: Status: Active Protocol: Document 05/24/19 09:49 [facility] (Rec: 05/26/19 13:58 [facility] [email or web address]) Trunk Strength Trunk Manual Muscle Testing Testing Position Supine Flexion 3 Fair Core Stabilization weak transverse abodminal musculature with difficulty isolating a TA contraction Hip Strength Hip Manual Muscle Testing Left Abduction 3 Fair External Rotation 3 Fair Right Abduction 3 Fair External Rotation 3 Fair PT-OP-Q Treatments Start: 05/24/19 08:51 Freq: Status: Active Protocol: Document 05/26/19 13:58 [facility] (Rec: 05/26/19 13:59 [facility] [email or web address]) Therapeutic Exercises Supine Exercises 1 Supine Exercise Name pelvic floor long holds Side bilateral Reps/Minutes 10 second hold with 10 second relaxation PT-OP-T Assessment and Plan Start: 05/24/19 08:51 Freq: Status: Active Protocol: Document 05/24/19 09:49 [facility] (Rec: 05/26/19 13:58 [facility] [email or web address]) Physical Therapy Assessment Goals Four Impairment myofasical tightness of the suprapubic region and upper abdominal wall Short Term Goal (STG) Briseida is educated in a stretching program for the abdominal wall and chest to decrease downward pressure on the bladder Three Impairment weakness of the lower abdominal musculature Fdc Goal (LTG) Veronica is able to strengthen the transverse abominal wall and decrease tension in the upper abdominal wall decreasing strain down on the bladder LTG Duration 8 weeks Two Impairment Decreased pelvic floor endurance Short Term Goal (STG) Veronica is able to improve her endurance of her pelvic floor contractions to 10 second hold time in supine STG Duration 4-5 weeks Gold Leaf Layer Goal (LTG) Veronica is able to sustain a pelvic floor contraction for 10 seconds in standing LTG Duration 8 weeks One Impairment urinary urge incontinence Short Term Goal (STG) Briseida is educated on bladder dietary irritants and urge deference technique STG Duration 2 weeks Gold Leaf Layer Goal (LTG) Briseida is able to decrease her leakage from 3 times per day to 0-1 time per day and is no longer having to wear maxi pads LTG Duration 8 weeks Assessment Summary Assessment Briseida presents to physical therapy with primarily urge incontinence symptoms. She has a history of a bladder sling a year and a half ago. She does feel some pelvic pressure with standing. She denies symptoms of urinary stress incontinence. We discussed dietary irritants today and Briseida reports approximately 3 glasses of wine per night and 3-4 glasses of water during the day. She was educated today on using a bladder diary to track voids as well as experimenting with decreasing bladder irritants. She was not prepared for a vaginal examination today so we started with EMG biofeedback and will complete the rest of the examination next visit. Briseida does have the ability to rest at baseline but there was a great deal of fasciculations and spasms present. Her endurance of her pelvic floor is very limited. With palpation today there is tightness of the upper abdominal wall and in the suprapubic fascia above the bladder. Treatment will include bladder retraining, MFR techniques for the abdominal wall, pelvic floor endurance training and HEP Physical Therapy Plan Frequency and Duration Frequency of Treatment 1x/Week Duration of Treatment 8 Plan of Care Start Date 05/24/19 Plan of Care End Date 07/19/19 Therapeutic Interventions Therapeutic Interventions Home Exercise Program,Manual Therapy,Neuromuscular Re- education,Patient/Caregiver Education,Self-Care/Home Management,Soft Tissue Mobilization,Therapeutic Exercises Next Visit Focus/Plan Next Note Type Treatment Note Next Visit Plan begin stretches for the anterior chest and abdominal wall including foam roll and cobra stretch, review bladder diary, pelvic floor internal assessment, EMG biofeedback for neuro re-education of the pelvic floor.
--- NOTE | 2019-06-01 14:11 | PT.OTN ---
Current Diagnoses Urge incontinence (06/01/19) Physical Therapy Treatment Note PT-OP-A Visit Information Start: 05/24/19 08:51 Freq: Status: Active Protocol: Document 06/01/19 10:34 [facility] (Rec: 06/01/19 10:39 [facility] [id number]) Out-Patient Physical Therapy Visit Information Visit Information Visit Type Treatment Note Visit Start Time 09:45 Visit Stop Time 10:30 Total Visit Minutes 45 Visit Number 2 Evaluation Information Evaluation Date 06/01/19 PT-OP-B Current Condition Start: 05/24/19 08:51 Freq: Status: Active Protocol: Document 05/24/19 09:49 [facility] (Rec: 05/26/19 13:58 [facility] [email or web address]) Current Condition History of Current Condition History of Current Condition Had a sling surgery 1.5 years ago. She didn't feel it was completly successful. Cant always predict when she has urgency, voids frequencty, comes on when she is driving and often she will ahve leakage while driving, if sitting then standing up will experience leakage. Wakes up 2-3 times per night to void. She does completly void when emptying. At times the voiding will be fast and other times slow. Hx of 2 vaginal deliveries. 1-2 bowel movements per day. Wears a pad daily and changes it a couple of times per day. PT-OP-C Subjective Start: 05/24/19 08:51 Freq: Status: Active Protocol: Document 06/01/19 10:34 [facility] (Rec: 06/01/19 10:39 [facility] [id number]) OP-PT Subjective Patient Comments Patient Comments In the past week it hasn't been as urgent in the middle of the night. Urge technique has helped this week. Patient Reported Progress Improving PT-OP-F Manual Assessment Start: 05/24/19 08:51 Freq: Status: Active Protocol: Document 05/24/19 09:49 [facility] (Rec: 05/26/19 13:58 [facility] [email or web address]) Manual Assessments Soft Tissue Assessment Soft Tissue Mobility Assessment tightness in the suprafascial region of the pelvis and upper abdominal wall PT-OP-I Pelvic Floor Start: 05/24/19 08:51 Freq: Status: Active Protocol: Document 06/01/19 13:59 [facility] (Rec: 06/01/19 14:05 [facility] [email or web address]) Pelvic Floor Assessment Pelvic Clock Pelvic Clock 12-3 Atrophy Pelvic Clock 3-6 Atrophy Contraction Ability Voluntary Contraction Weak Voluntary Relaxation Weak Manual Muscle Testing Left 3 Manual Muscle Testing Right 3 Manual Muscle Testing Anterior 3 Manual Muscle Testing Posterior 3 Muscle Endurance (Seconds) 5 PT-OP-M Strength Start: 05/24/19 08:51 Freq: Status: Active Protocol: Document 05/24/19 09:49 [facility] (Rec: 05/26/19 13:58 [facility] [email or web address]) Trunk Strength Trunk Manual Muscle Testing Testing Position Supine Flexion 3 Fair Core Stabilization weak transverse abodminal musculature with difficulty isolating a TA contraction Hip Strength Hip Manual Muscle Testing Left Abduction 3 Fair External Rotation 3 Fair Right Abduction 3 Fair External Rotation 3 Fair PT-OP-Q Treatments Start: 05/24/19 08:51 Freq: Status: Active Protocol: Document 06/01/19 13:59 [facility] (Rec: 06/01/19 14:05 [facility] [email or web address]) Therapeutic Exercises Supine Exercises 3 Supine Exercise Name adductor squeeze with small ball Comments cues to facilitate the anterior pelvic floor 2 Supine Exercise Name pelvic floor quick fliks Reps/Minutes x 10 reps 1 Supine Exercise Name pelvic floor long holds Side bilateral Reps/Minutes 10 second hold with 10 second relaxation Manual Therapy Treatment Manual Techniques 1 Type manual internal pelvic floor assessment Body Location pelvic floor Body Position Hooklying Comments pt able to contract all parts of her pelvic floor, needed tactile cues for the anterior pelvic floor facilitation, pelvic organ prolapse not felt with todays examination PT-OP-T Assessment and Plan Start: 05/24/19 08:51 Freq: Status: Active Protocol: Document 06/01/19 14:05 [facility] (Rec: 06/01/19 14:11 [facility] [email or web address]) Physical Therapy Assessment Assessment Summary Assessment Improved ability to isolate the pelvic floor today. Not as many visable spasms on EMG biofeedback. With pelvic floor assessement today Briseida is able to facilitate all parts of the levator ani with a 3/5 MMT and approximately 5 second hold time Physical Therapy Plan Frequency and Duration Frequency of Treatment 1x/Week Duration of Treatment 8 Plan of Care Start Date 05/24/19 Plan of Care End Date 07/19/19 Therapeutic Interventions Therapeutic Interventions Home Exercise Program,Manual Therapy,Neuromuscular Re- education,Patient/Caregiver Education,Self-Care/Home Management,Soft Tissue Mobilization,Therapeutic Exercises Next Visit Focus/Plan Next Note Type Treatment Note Next Visit Plan begin stretches for the anterior chest and abdominal wall including foam roll and cobra stretch as we did not do those today. Continue to work on endurance of the pelvci floor
--- NOTE | 2019-06-23 10:59 | PT.OTN ---
Current Diagnoses Urge incontinence (06/22/19) Physical Therapy Treatment Note PT-OP-A Visit Information Start: 05/24/19 08:51 Freq: Status: Active Protocol: Document 06/22/19 10:35 [facility] (Rec: 06/22/19 10:39 [facility] [id number]) Out-Patient Physical Therapy Visit Information Visit Information Visit Type Treatment Note Visit Start Time 10:30 Visit Stop Time 11:15 Total Visit Minutes 45 Visit Number 3 Evaluation Information Evaluation Date 06/01/19 PT-OP-B Current Condition Start: 05/24/19 08:51 Freq: Status: Active Protocol: Document 05/24/19 09:49 [facility] (Rec: 05/26/19 13:58 [facility] [email or web address]) Current Condition History of Current Condition History of Current Condition Had a sling surgery 1.5 years ago. She didn't feel it was completly successful. Cant always predict when she has urgency, voids frequencty, comes on when she is driving and often she will ahve leakage while driving, if sitting then standing up will experience leakage. Wakes up 2-3 times per night to void. She does completly void when emptying. At times the voiding will be fast and other times slow. Hx of 2 vaginal deliveries. 1-2 bowel movements per day. Wears a pad daily and changes it a couple of times per day. PT-OP-C Subjective Start: 05/24/19 08:51 Freq: Status: Active Protocol: Document 06/22/19 10:35 [facility] (Rec: 06/22/19 10:39 [facility] [id number]) OP-PT Subjective Patient Comments Patient Comments Pt reports she has missed the last 2 appointments as her daughter broke her leg and she has been visiting her helping her out. Pt feels exercises are helping there has been a few times when shehas been sittign for a while and she has a large leak. She has been sleeping four hours at a stretch at night and feels much more rested Patient Reported Progress Improving PT-OP-F Manual Assessment Start: 05/24/19 08:51 Freq: Status: Active Protocol: Document 05/24/19 09:49 [facility] (Rec: 05/26/19 13:58 [facility] [email or web address]) Manual Assessments Soft Tissue Assessment Soft Tissue Mobility Assessment tightness in the suprafascial region of the pelvis and upper abdominal wall PT-OP-I Pelvic Floor Start: 05/24/19 08:51 Freq: Status: Active Protocol: Document 06/01/19 13:59 [facility] (Rec: 06/01/19 14:05 [facility] [email or web address]) Pelvic Floor Assessment Pelvic Clock Pelvic Clock 12-3 Atrophy Pelvic Clock 3-6 Atrophy Contraction Ability Voluntary Contraction Weak Voluntary Relaxation Weak Manual Muscle Testing Left 3 Manual Muscle Testing Right 3 Manual Muscle Testing Anterior 3 Manual Muscle Testing Posterior 3 Muscle Endurance (Seconds) 5 PT-OP-M Strength Start: 05/24/19 08:51 Freq: Status: Active Protocol: Document 05/24/19 09:49 [facility] (Rec: 05/26/19 13:58 [facility] [email or web address]) Trunk Strength Trunk Manual Muscle Testing Testing Position Supine Flexion 3 Fair Core Stabilization weak transverse abodminal musculature with difficulty isolating a TA contraction Hip Strength Hip Manual Muscle Testing Left Abduction 3 Fair External Rotation 3 Fair Right Abduction 3 Fair External Rotation 3 Fair PT-OP-Q Treatments Start: 05/24/19 08:51 Freq: Status: Active Protocol: Document 06/22/19 10:30 [facility] (Rec: 06/23/19 10:59 [facility] [email or web address]) Therapeutic Exercises Supine Exercises 5 Supine Exercise Name templates for eccentric control and coordination Comments with EMG biofeedback 4 Supine Exercise Name roll outs with theraband Equipment Used level 2 TB Reps/Minutes 3 x 10 3 Supine Exercise Name adductor squeeze with small ball Comments cues to facilitate the anterior pelvic floor 2 Supine Exercise Name pelvic floor quick fliks Reps/Minutes x 10 reps 1 Supine Exercise Name pelvic floor long holds Side bilateral Reps/Minutes 10 second hold with 10 second relaxation PT-OP-T Assessment and Plan Start: 05/24/19 08:51 Freq: Status: Active Protocol: Document 06/22/19 10:30 [facility] (Rec: 06/23/19 10:59 [facility] [email or web address]) Physical Therapy Assessment Assessment Summary Assessment Good increase with both average contraction and max contraction today. Average of 12.4 uv and max of 31.5 uv. Able to relax to baseline witout any muscle spasms
--- NOTE | 2019-06-30 08:55 | PT.OTN ---
Current Diagnoses Urge incontinence (06/29/19) Physical Therapy Treatment Note PT-OP-A Visit Information Start: 05/24/19 08:51 Freq: Status: Active Protocol: Document 06/29/19 10:30 [facility] (Rec: 06/30/19 08:55 [facility] [email or web address]) Out-Patient Physical Therapy Visit Information Visit Information Visit Type Treatment Note Visit Start Time 10:30 Visit Stop Time 11:15 Total Visit Minutes 45 Visit Number 4 PT-OP-B Current Condition Start: 05/24/19 08:51 Freq: Status: Active Protocol: Document 05/24/19 09:49 [facility] (Rec: 05/26/19 13:58 [facility] [email or web address]) Current Condition History of Current Condition History of Current Condition Had a sling surgery 1.5 years ago. She didn't feel it was completly successful. Cant always predict when she has urgency, voids frequencty, comes on when she is driving and often she will ahve leakage while driving, if sitting then standing up will experience leakage. Wakes up 2-3 times per night to void. She does completly void when emptying. At times the voiding will be fast and other times slow. Hx of 2 vaginal deliveries. 1-2 bowel movements per day. Wears a pad daily and changes it a couple of times per day. PT-OP-C Subjective Start: 05/24/19 08:51 Freq: Status: Active Protocol: Document 06/29/19 10:30 [facility] (Rec: 06/30/19 08:55 [facility] [email or web address]) OP-PT Subjective Patient Comments Patient Comments pt reports overall her symptoms of urinary incontinence have lessened. She has been able to use the urge technique to delay the need to void. She also is doing better overall with driving without leaking PT-OP-F Manual Assessment Start: 05/24/19 08:51 Freq: Status: Active Protocol: Document 05/24/19 09:49 [facility] (Rec: 05/26/19 13:58 [facility] [email or web address]) Manual Assessments Soft Tissue Assessment Soft Tissue Mobility Assessment tightness in the suprafascial region of the pelvis and upper abdominal wall PT-OP-I Pelvic Floor Start: 05/24/19 08:51 Freq: Status: Active Protocol: Document 06/01/19 13:59 [facility] (Rec: 06/01/19 14:05 [facility] [email or web address]) Pelvic Floor Assessment Pelvic Clock Pelvic Clock 12-3 Atrophy Pelvic Clock 3-6 Atrophy Contraction Ability Voluntary Contraction Weak Voluntary Relaxation Weak Manual Muscle Testing Left 3 Manual Muscle Testing Right 3 Manual Muscle Testing Anterior 3 Manual Muscle Testing Posterior 3 Muscle Endurance (Seconds) 5 PT-OP-M Strength Start: 05/24/19 08:51 Freq: Status: Active Protocol: Document 05/24/19 09:49 [facility] (Rec: 05/26/19 13:58 [facility] [email or web address]) Trunk Strength Trunk Manual Muscle Testing Testing Position Supine Flexion 3 Fair Core Stabilization weak transverse abodminal musculature with difficulty isolating a TA contraction Hip Strength Hip Manual Muscle Testing Left Abduction 3 Fair External Rotation 3 Fair Right Abduction 3 Fair External Rotation 3 Fair PT-OP-Q Treatments Start: 05/24/19 08:51 Freq: Status: Active Protocol: Document 06/29/19 10:30 [facility] (Rec: 06/30/19 08:55 [facility] [email or web address]) Therapeutic Exercises Supine Exercises 5 Supine Exercise Name templates for eccentric control and coordination Comments with EMG biofeedback 4 Supine Exercise Name roll outs with theraband Equipment Used level 2 TB Reps/Minutes 3 x 10 3 Supine Exercise Name adductor squeeze with small ball Comments cues to facilitate the anterior pelvic floor 2 Supine Exercise Name pelvic floor quick fliks Reps/Minutes x 10 reps 1 Supine Exercise Name pelvic floor long holds Side bilateral Reps/Minutes 10 second hold with 10 second relaxation Neuro Re-Education Treatment Other Activities 1 Details NMES Reps/Duration 5 min Comments used NMES to help facilitate the anterior pelvic floor PT-OP-T Assessment and Plan Start: 05/24/19 08:51 Freq: Status: Active Protocol: Document 06/29/19 10:30 [facility] (Rec: 06/30/19 08:55 [facility] [email or web address]) Physical Therapy Assessment Assessment Summary Assessment Symptoms have improved overall , endurance was limited today and Briseida felt as if she was using her gluteals. I did a trial of NMES with her to help facilitate the anterior pelvic floor and she felt this was very helpful Physical Therapy Plan Frequency and Duration Frequency of Treatment 1x/Week Duration of Treatment 8 Plan of Care Start Date 05/24/19 Plan of Care End Date 07/19/19 Therapeutic Interventions Therapeutic Interventions Home Exercise Program,Manual Therapy,Neuromuscular Re- education,Patient/Caregiver Education,Self-Care/Home Management,Soft Tissue Mobilization,Therapeutic Exercises Next Visit Focus/Plan Next Note Type Treatment Note Next Visit Plan Reassessment of strength of the pelvic floor next visit with internal examination. Continue to work on endurance of the pelvic floor
--- NOTE | 2020-01-30 14:41 | PT.OPDS ---
Current Diagnoses Urge incontinence (06/29/19) Visit Care Team Role Provider Type Alice Lucero MD Primary Care Provider Physician Specialty: Family Practice Address: [facility] [facility], [place], [address] Email: [email or web address] Maria R Dillard MD Attending Provider Physician Specialty: INDEX EDITOR Address: [address] [place] [address], [address] Email: [email or web address] Visit Number Visit Number 4 Discharge Summary PT-OP-B Current Condition Start: 05/24/19 08:51 Freq: Status: Active Protocol: Document 05/24/19 09:49 [facility] (Rec: 05/26/19 13:58 [facility] [email or web address]) Current Condition History of Current Condition History of Current Condition Had a sling surgery 1.5 years ago. She didn't feel it was completly successful. Cant always predict when she has urgency, voids frequencty, comes on when she is driving and often she will ahve leakage while driving, if sitting then standing up will experience leakage. Wakes up 2-3 times per night to void. She does completly void when emptying. At times the voiding will be fast and other times slow. Hx of 2 vaginal deliveries. 1-2 bowel movements per day. Wears a pad daily and changes it a couple of times per day. PT-OP-C Subjective Start: 05/24/19 08:51 Freq: Status: Active Protocol: Document 06/29/19 10:30 AM[facility] (Rec: 06/30/19 08:55 [facility] [email or web address]) OP-PT Subjective Patient Comments Patient Comments pt reports overall her symptoms of urinary incontinence have lessened. She has been able to use the urge technique to delay the need to void. She also is doing better overall with driving without leaking PT-OP-F Manual Assessment Start: 05/24/19 08:51 Freq: Status: Active Protocol: Document 05/24/19 09:49 AMH (Rec: 05/26/19 13:58 [facility] [email or web address]) Manual Assessments Soft Tissue Assessment Soft Tissue Mobility Assessment tightness in the suprafascial region of the pelvis and upper abdominal wall PT-OP-I Pelvic Floor Start: 05/24/19 08:51 Freq: Status: Active Protocol: Document 06/01/19 13:59 AM[facility] (Rec: 06/01/19 14:05 AM[facility] [email or web address]) Pelvic Floor Assessment Pelvic Clock Pelvic Clock 12-3 Atrophy Pelvic Clock 3-6 Atrophy Contraction Ability Voluntary Contraction Weak Voluntary Relaxation Weak Manual Muscle Testing Left 3 Manual Muscle Testing Right 3 Manual Muscle Testing Anterior 3 Manual Muscle Testing Posterior 3 Muscle Endurance (Seconds) 5 PT-OP-M Strength Start: 05/24/19 08:51 Freq: Status: Active Protocol: Document 05/24/19 09:49 AMH (Rec: 05/26/19 13:58 AM[facility] [email or web address]) Trunk Strength Trunk Manual Muscle Testing Testing Position Supine Flexion 3 Fair Core Stabilization weak transverse abodminal musculature with difficulty isolating a TA contraction Hip Strength Hip Manual Muscle Testing Left Abduction 3 Fair External Rotation 3 Fair Right Abduction 3 Fair External Rotation 3 Fair PT-OP-T Assessment and Plan Start: 05/24/19 08:51 Freq: Status: Active Protocol: Document 01/30/20 14:39 AM[facility] (Rec: 01/30/20 14:40 AM[facility] [email or web address]) Physical Therapy Assessment Assessment Summary Assessment As of Briseida's last visit in PT symptoms had improved overall. She has not been seen in our clinic since June. She did not return phone calls to reschedule after the covid 19 pandemic. Briseida will be discharged at this time Physical Therapy Plan Discharge Physical Therapy Discharge Reasons No Longer Attending PT
== END 2020-01-31 11:26 ==
LOC: PHYS 10:30
PROVIDERS: PCP Student in an Organized Health Care Education/Training Program; Visit Provider Obstetrics & Gynecology
DX: N39.41 Urge incontinence (principal)
CPT/HCPCS: 97110; 97140; 97161

== ENCOUNTER → 2019-10-06 11:57 | Outpatient (CLI) | payer MEDICARE, SELFPAY ==
--- NOTE | 2019-10-06 | DI.RAD.S_ITS ---
PROCEDURE: XR CHEST 2V INDICATIONS: Shortness of breath TECHNIQUE: 2 views of the chest were acquired. COMPARISON: [facility], , XR CHEST 2V, 05/24/2018, 12:34. FINDINGS: Surgical changes and devices: Right breast clips. Lungs and pleura: Lungs are clear. No pleural effusions or pneumothorax. Mediastinum: Mediastinal contours are normal. Heart size is normal. Bones and chest wall: No suspicious bony abnormalities. Soft tissues appear unremarkable. IMPRESSION: No acute cardiopulmonary abnormality. Dictated by: Shad Cornejo M.D. on 10/06/2019 at 12:15 Approved by: Shad Cornejo M.D. on 10/06/2019 at 12:16
== END ==
PROVIDERS: PCP Student in an Organized Health Care Education/Training Program; Referring Provider Student in an Organized Health Care Education/Training Program; Visit Provider Student in an Organized Health Care Education/Training Program
DX: R06.02 Shortness of breath (principal); R06.00 Dyspnea, unspecified
CPT/HCPCS: 71046; 85379

== ENCOUNTER → 2019-10-06 11:59 | Outpatient (ROUT) | payer MEDICARE, SELFPAY ==
[2019-10-06 12:12] LABS: D Dimer < 200 ng/mL (<230)
== END ==
PROVIDERS: PCP Student in an Organized Health Care Education/Training Program; Visit Provider Student in an Organized Health Care Education/Training Program
DX: R06.00 Dyspnea, unspecified (principal)
CPT/HCPCS: 85379

== ENCOUNTER → 2019-10-10 13:58 | Outpatient (CLI) | payer MEDICARE, SELFPAY ==
--- NOTE | 2019-10-10 | DI.CT.S_ITS ---
Caution: Report not yet finalized and possibly incomplete! PROCEDURE: CT CHEST ABD PEL W CON INDICATIONS: abnormal findings of blood chemistry TECHNIQUE: After the administration of oral and intravenous contrast, 5 mm thick sections acquired from the lung apices to the symphysis. 5 mm coronal and sagittal reformats were performed, with additional 7 mm coronal MIP reformats through the lungs. For radiation dose reduction, the following was used: automated exposure control, adjustment of mA and/or kV according to patient size. COMPARISON: [facility], CR, XR CHEST 2V, 10/06/2019, 11:55[facility], CT, CT SOFT TISSUE NECK W CON, 10/10/2019, 15:20. FINDINGS: Image quality: Excellent. CHEST: Lungs and pleura: No definite acute airspace opacities, but there is mild apical lung parenchyma and pleural scarring. No pleural effusions or pneumothorax. Mild deep posterior costophrenic sulcus atelectasis is incidentally noted. Central and peripheral airways appear patent and normal in caliber. Mediastinum: Heart size is normal. No pericardial effusion. No mediastinal or hilar adenopathy by size criteria. Thoracic aorta and central pulmonary arteries are normal in size. Esophagus is normal in caliber. No hiatal hernia. Chest wall: No axillary or supraclavicular adenopathy by size criteria. Thyroid gland appears normal where well seen. ABDOMEN: Solid organs: Liver is normal in size and enhancement. Gallbladder is normal. Biliary system is non dilated. Pancreas enhances normally. Spleen is normal in size and enhancement. No adrenal nodules. Kidneys demonstrate normal size and enhancement, without hydronephrosis. Peritoneum and bowel: Bowel loops demonstrate normal wall thickness and caliber. No free fluid or air. Nodes and vessels: No retroperitoneal or mesenteric adenopathy by size criteria. Aorta and inferior vena cava are normal in size. Miscellaneous: No ventral hernias. PELVIS: Genitourinary: Bladder wall thickness is normal. Miscellaneous: No inguinal hernias or adenopathy. Bones: No suspicious bony lesions. No vertebral body compression fractures. IMPRESSION: No underlying adenopathy or solid/hollow organ infection or neoplasm is found. The marrow space visualized shows no evidence of osteolytic or blastic change, and marrow hypercellularity is not identified. Dictated by: Catalino Newsome M.D. on 10/10/2019 at 17:25 Approved by: Catalino Newsome M.D. on 10/10/2019 at 17:31
--- NOTE | 2019-10-10 | DI.CT.S_ITS ---
PROCEDURE: CT SOFT TISSUE NECK W CON INDICATIONS: abnormal findings of blood chemistry TECHNIQUE: After the administration of intravenous contrast, 3.0 mm axial sections acquired from the sella to the aortic arch. Additional oblique axial 3.0 mm sections acquired through the pharynx. 3 mm thick coronal and sagittal reformats were generated. For radiation dose reduction, the following was used: automated exposure control. COMPARISON: None. FINDINGS: Image quality: Excellent. Lymph nodes: No enlarged lymph nodes seen throughout the neck. Vessels: Visualized vasculature appears patent. Neck spaces: The oropharynx, nasopharynx, and pharynx demonstrate no mucosal lesions. The vocal cords, false vocal cords, pyriform sinuses, epiglottis, vallecula, and tongue base all appear normal. Extramucosal spaces appear unremarkable. Glands: The parotid and submandibular glands appear normal. Thyroid gland demonstrates subcentimeter hypodense nodules that measure up to 4 mm. Miscellaneous: Visualized brain and orbits appear normal. No pulmonary cyst formation can be seen within the visualized lung apices. Superficial soft tissues appear normal. Bones: No suspicious bony lesions. Visualized sinuses and mastoids appear unremarkable. Degenerative changes are seen, with moderate disc space narrowing C3-C4 and moderate to severe disc space narrowing at C4-C5, C5-C6, and C6-C7. Mild retrolisthesis is seen at C5-C6. Posterior rectum endplate osteophytes are seen at C5-C6 and the C6-C7. Focal degenerative change can also be seen involving the C1-C2 interface anteriorly. IMPRESSION: No masses or enlarged lymph nodes are seen within the neck. Prominent lower cervical spine degenerative changes are seen. Thyroid nodules are seen that measure up to 4 mm. If clinically appropriate, a dedicated thyroid ultrasound could be considered for further evaluation. Dictated by: Armando Lenz M.D. on 10/10/2019 at 15:11 Approved by: Armando Lenz M.D. on 10/10/2019 at 15:14
== END ==
PROVIDERS: PCP Student in an Organized Health Care Education/Training Program; Referring Provider Student in an Organized Health Care Education/Training Program; Visit Provider Student in an Organized Health Care Education/Training Program
DX: R79.89 Other specified abnormal findings of blood chemistry (principal); R06.00 Dyspnea, unspecified; M47.812 Spondylosis without myelopathy or radiculopathy, cervical region; E04.2 Nontoxic multinodular goiter
CPT/HCPCS: 70491; 71260; 74177; Q9967

== ENCOUNTER → 2019-10-14 14:37 | Outpatient (CLI) | payer MEDICARE, SELFPAY ==
--- NOTE | 2019-10-14 16:01 | DI.ECHO.S_ITS ---
Echocardiogram Report + + :Name: MARY ECHEVERRIA Study Date: 10/14/2019 Height: 66 in : :[facility] Weight: 144 lb : : Gender: Female BSA: 1.7 m2 : :: 1940 Age: 79 yrs BP: 124/82 mmHg: :Reason For Study: Dyspnea : : Performed By: Ree Nugent : :Referring: KYLAH BECK : + + Interpretation Summary There is mild proximal septal thickening noted. The left ventricular ejection fraction is normal. There are no obvious focal wall motion abnormalities noted but poor endocardial definition reduces the sensitivity for the detection of such. Diastolic parameters suggest probable normal left ventricular diastolic function and normal filling pressures. The right ventricle is normal in size and function. Pulmonary artery pressures cannot be estimated because of the lack of a measurable TR jet velocity but the IVC suggests a CVP of around 3 mmHg. Doppler findings do not suggest pulmonary hypertension. -No significant change compared to the prior echocardiogram. Procedure: A two-dimensional transthoracic echocardiogram with color flow and Doppler was performed. Comparison is made with the echocardiogram of 11/24/2018. The patient was in normal sinus rhythm during the exam. Left Ventricle: There is mild proximal septal thickening noted. The left ventricle is normal in size. There is normal left ventricular wall thickness. The ejection fraction is estimated to be 60-65%. The left ventricular ejection fraction is normal. There are no obvious focal wall motion abnormalities noted but poor endocardial definition reduces the sensitivity for the detection of such. Diastolic parameters suggest probable normal left ventricular diastolic function and normal filling pressures. Right Ventricle: The right ventricle is normal in size and function. Atria: Both atria are normal in size. There is no Doppler evidence for an interatrial shunt. Mitral Valve: The mitral valve is normal in structure and function. There is trace mitral regurgitation. Aortic Valve: The aortic valve is trileaflet. The aortic valve opens well. No aortic regurgitation is present. Tricuspid Valve: The tricuspid valve is normal in structure and function. There is trace tricuspid regurgitation. Pulmonary artery pressures cannot be estimated because of the lack of a measurable TR jet velocity but the IVC suggests a CVP of around 3 mmHg. Doppler findings do not suggest pulmonary hypertension. Pulmonic Valve: The pulmonic valve leaflets are thin and pliable; valve motion is normal. There is trace pulmonic regurgitation. Great Vessels: The aortic root is normal size. The ascending aorta is at the upper limits of normal in size. The aortic arch is normal in size. The IVC is of normal diameter and collapses greater than 50% with a sniff. This suggests a low right atrial pressure of 3 mm Hg. Pericardium/ Pleura There is no pericardial effusion. MMode/2D Measurements & Calculations LVIDd: 4.4 cm LVOT diam: 1.9 cm LVIDs: 2.2 cm Ao root diam: 3.6 cm FS: 49.0 % asc Aorta Diam: 3.4 cm EPSS: 0.33 cm Ao Arch Diam (Prox Trans): 2.4 cm IVSd: 0.80 cm LVPWd: 0.92 cm LV clarke. diameter/BSA (cm/m^2): 2.5 LV sys. diameter/BSA (cm/m^2): 1.3 LA A2 area: 19.3 cm2 RA long axis: 4.2 cm LA A4 area: 16.8 cm2 RA area: 11.2 cm2 LA length (vol): 4.9 cm RA vol: 25.1 ml LA vol: 56.2 ml RA : 14.4 ml/m2 LA vol index: 32.3 ml/m2 IVC diam: 1.9 cm RVD1 (basal): 2.9 cm RVD2 (mid): 1.8 cm TAPSE: 2.4 cm Doppler Measurements & Calculations Ao V2 max: 120.5 cm/sec LVOT Max Gustavo: 107.1 cm/sec Ao V2 mean: 80.4 cm/sec LV V1 max P.6 mmHg Ao max P.8 mmHg LV V1 VTI: 23.9 cm Ao mean P.9 mmHg SHWETA(I,D): 2.7 cm2 Ao V2 VTI: 25.6 cm SHWETA(V,D): 2.5 cm2 sev ratio: 0.93 SHWETA indexed to BSA (cm^2/m^2): 1.5 MV E max gustavo: 70.7 cm/sec TR max gustavo: 240.3 cm/sec MV A max gustavo: 72.6 cm/sec TR max P.1 mmHg MV E/A: 0.97 PA V2 max: 75.1 cm/sec Med Peak E' Gustavo: 4.9 cm/sec PA V2 mean: 53.1 cm/sec E/E' med: 14.3 PA mean P.3 mmHg Lat Peak E' Gustavo: 6.0 cm/sec PA Accel Time: 0.09 sec E/E' lat: 11.8 E/e' average: 13.0 MV dec time: 0.23 sec MV P1/2t: 68.9 msec MV P1/2t max gustavo: 71.2 cm/sec SV(LVOT): 68.0 ml MVA(P1/2t): 3.2 cm2 _ Electronically signed by: Sammy Zimmerman M.D. on Reading Physician:10/14/2019 08:24 PM
== END ==
PROVIDERS: PCP Student in an Organized Health Care Education/Training Program; Referring Provider Student in an Organized Health Care Education/Training Program; Visit Provider Student in an Organized Health Care Education/Training Program
DX: R06.00 Dyspnea, unspecified (principal)
CPT/HCPCS: 93016; 93017; 93018; 93306

== ENCOUNTER → 2019-10-20 11:56 | Outpatient (CLI) | payer MEDICARE, SELFPAY ==
--- NOTE | 2019-10-20 | DI.US.S_ITS ---
PROCEDURE: US THYROID INDICATIONS: NONTOXIC SINGLE THYROID NODULE TECHNIQUE: Real-time scanning was performed of the thyroid gland, with image documentation. COMPARISON: None. FINDINGS: Right: Thyroid lobe measures 3.3 x 0.9 x 1.2 cm, and is homogeneous in echotexture. Left: Thyroid lobe measures 2.0 x 1.8 x 0.9 cm, and is homogenous in echotexture. Isthmus: 1.4 mm thick. Nodule number: 1 Location: Medial right lower pole. Size: 0.6 x 0.3 x 0.3 cm. Composition: Cystic Echogenicity: Anechoic Shape: wider than tall. Margins: Smooth Echogenic foci: Coarse Total points: Zero ACR TI-RADS category: One, Benign Nodule number: 2 Location: Lateral left lower pole Size: 0.5 x 0.6 x 0.4 cm. Composition: Cystic Echogenicity: Anechoic Shape: wider than tall. Margins: [place] Echogenic foci: Coarse Total points: Zero ACR TI-RADS category: One, benign IMPRESSION: 1. Diminutive thyroid gland with benign cysts in each lobe measuring up to 6 mm in maximal diameter. 2. No solid masses. ACR TI-RADS definitions and recommendations: TI-RADS 1 (benign): 0 points. FNA not needed. TI-RADS 2 (not suspicious): 2 points. FNA not needed. TI-RADS 3 (mildly suspicious): 3 points. * FNA if 2.5 cm or larger, follow up if 1.5 cm or larger (at 1, 3, and 5 years). TI-RADS 4 (moderately suspicious): 4-6 points. * FNA if 1.5 cm or larger, follow up if 1 cm or larger (at 1, 2, 3, and 5 years). TI-RADS 5 (highly suspicious): 7 points or more. * FNA if 1 cm or larger, follow up if 0.5 cm or larger (every year for 5 years). Dictated by: Celena Ruiz M.D. on 10/23/2019 at 18:49 Approved by: Celena Ruiz M.D. on 10/23/2019 at 18:55
== END ==
PROVIDERS: PCP Student in an Organized Health Care Education/Training Program; Referring Provider Student in an Organized Health Care Education/Training Program; Visit Provider Student in an Organized Health Care Education/Training Program
DX: E04.2 Nontoxic multinodular goiter (principal)
CPT/HCPCS: 76536

== ENCOUNTER → 2019-10-24 16:10 | Outpatient (CLI) | payer MEDICARE, SELFPAY ==
[2019-10-25 11:03] LABS: COVID19 Sendout Not Detected (Not Detect)
== END ==
PROVIDERS: PCP Student in an Organized Health Care Education/Training Program; Visit Provider Registered Nurse
DX: Z01.812 Encounter for preprocedural laboratory examination (principal)
CPT/HCPCS: 87635

== ENCOUNTER → 2019-12-22 14:57 | Outpatient (CLI) | payer MEDICARE, SELFPAY ==
--- NOTE | 2019-12-22 | DI.MG.S_ITS ---
BILATERAL DIGITAL SCREENING MAMMOGRAM 3D/2D WITH CAD: 12/22/2019 CLINICAL: Routine screening. Personal history of right breast cancer. Comparison is made to exams dated: 10/20/2018 mammogram, 06/25/2017 mammogram, and 11/21/2016 mammogram - [facility]. The tissue of both breasts is heterogeneously dense. This may lower the sensitivity of mammography. Current study was also evaluated with a Computer Aided Detection (CAD) system. There are benign post operative findings in the right breast. No significant masses, calcifications, or other findings are seen in either breast. There has been no significant interval change. IMPRESSION: There is no mammographic evidence of malignancy. A 1 year screening mammogram is recommended. This exam was interpreted at Station ID: [id number]. NOTE: For mammograms, a report in lay terms will be sent to the patient. Approximately 15% of breast malignancies will not be visualized mammographically. In the management of a palpable breast mass, a negative mammogram must not discourage biopsy of a clinically suspicious lesion. Electronically Signed By: Isauro vick/darian:12/22/2019 17:34:35 copy to: COMPA DIAZ letter sent: Normal Exam ACR BI-RADS Category 2: Benign Finding(s) 3342F
== END ==
PROVIDERS: PCP Student in an Organized Health Care Education/Training Program; Referring Provider Student in an Organized Health Care Education/Training Program; Visit Provider Student in an Organized Health Care Education/Training Program
DX: Z12.31 Encounter for screening mammogram for malignant neoplasm of breast (principal); Z85.3 Personal history of malignant neoplasm of breast
CPT/HCPCS: 77063; 77067

== ENCOUNTER → 2020-02-23 13:37 | Outpatient (CLI) | payer MEDICARE, SELFPAY | PROVIDERS: PCP Student in an Organized Health Care Education/Training Program; Referring Provider Student in an Organized Health Care Education/Training Program; Visit Provider Student in an Organized Health Care Education/Training Program | DX: Z78.0 Asymptomatic menopausal state (principal); E07.9 Disorder of thyroid, unspecified; Z85.3 Personal history of malignant neoplasm of breast; Z87.891 Personal history of nicotine dependence | CPT/HCPCS: 77080 ==

== ENCOUNTER → 2020-05-14 09:50 | Outpatient (CLI) | payer MEDICARE, SELFPAY ==
--- NOTE | 2020-05-14 | DI.RAD.S_ITS ---
PROCEDURE: XR HIP W PEL IF DONE LT MIN 4V INDICATIONS: BILATERAL HIP PAIN TECHNIQUE: AP pelvis with lateral view(s) of the bilateral hip(s). COMPARISON: None. FINDINGS: Bones: No fractures or dislocations. Pelvic ring appears intact. No suspicious bony lesions. Note is made of symmetric [id number] hip joint osteoarthritis, without trauma. Soft tissues: The visualized bowel gas pattern is normal. No suspicious soft tissue calcifications. IMPRESSION: [id number] hip joint osteoarthritis appears symmetric without evidence of prior or recent trauma. Dictated by: Catalino Newsome M.D. on 05/14/2020 at 14:16 Approved by: Catalino Newsome M.D. on 05/14/2020 at 14:17
== END ==
PROVIDERS: PCP Student in an Organized Health Care Education/Training Program; Referring Provider Student in an Organized Health Care Education/Training Program; Visit Provider Student in an Organized Health Care Education/Training Program
DX: M25.551 Pain in right hip (principal); M25.552 Pain in left hip; M16.0 Bilateral primary osteoarthritis of hip
CPT/HCPCS: 73522

== ENCOUNTER → 2020-11-13 08:50 | Outpatient (CLI) | payer MEDICARE, SELFPAY ==
--- NOTE | 2020-11-13 | DI.US.S_ITS ---
PROCEDURE: US THYROID INDICATIONS: NODULE TECHNIQUE: Real-time scanning was performed of the thyroid gland, with image documentation. COMPARISON: [facility], US, US THYROID, 10/20/2019, 12:35. FINDINGS: Right: Thyroid lobe measures 3.4 x 0.7 x 1.5 cm, and is homogeneous in echotexture. Left: Thyroid lobe measures 1.8 x 0.9 x 1.0 cm, and is homogenous in echotexture. Isthmus: 2.3 mm thick. Nodule number: 1 Location: Inferior medial right thyroid lobe Size: 0.5 x 0.3 x 0.4 cm; previously 0.6 x 0.3 x 0.3 cm. Composition: Cystic Echogenicity: Anechoic Shape: Wider than tall. Margins: Smooth Echogenic foci: Comet tail Total points: 0 ACR TI-RADS category: 1 Nodule number: 2 Location: Inferior lateral left thyroid lobe Size: 1.8 x 0.9 x 1.0 cm; previously 2.0 x 1.8 x 0.9 cm. Composition: Cystic Echogenicity: Anechoic Shape: Wider than tall. Margins: Smooth Echogenic foci: Comet tail Total points: 0 ACR TI-RADS category: 1 IMPRESSION: Benign cysts are seen in thyroid gland, unchanged from the last exam. No solid masses. ACR TI-RADS definitions and recommendations: TI-RADS 1 (benign): 0 points. FNA not needed. TI-RADS 2 (not suspicious): 2 points. FNA not needed. TI-RADS 3 (mildly suspicious): 3 points. * FNA if 2.5 cm or larger, follow up if 1.5 cm or larger (at 1, 3, and 5 years). TI-RADS 4 (moderately suspicious): 4-6 points. * FNA if 1.5 cm or larger, follow up if 1 cm or larger (at 1, 2, 3, and 5 years). TI-RADS 5 (highly suspicious): 7 points or more. * FNA if 1 cm or larger, follow up if 0.5 cm or larger (every year for 5 years). Dictated by: Annabel Barba M.D. on 11/13/2020 at 10:57 Approved by: Annabel Barba M.D. on 11/13/2020 at 11:05
== END ==
PROVIDERS: PCP Student in an Organized Health Care Education/Training Program; Referring Provider Student in an Organized Health Care Education/Training Program; Visit Provider Student in an Organized Health Care Education/Training Program
DX: E04.2 Nontoxic multinodular goiter (principal)
CPT/HCPCS: 76536

== ENCOUNTER → 2021-01-14 08:24 | Outpatient (CLI) | payer MEDICARE, SELFPAY ==
[2021-01-14 14:09] LABS: COVID19 -Nasal RAPID Negative (Negative)
== END ==
PROVIDERS: PCP Student in an Organized Health Care Education/Training Program; Visit Provider Nurse Practitioner
DX: Z20.822 Contact with and (suspected) exposure to COVID-19 (principal); Z01.812 Encounter for preprocedural laboratory examination
CPT/HCPCS: 87635; C9803

== ENCOUNTER → 2021-02-04 10:48 | Outpatient (CLI) | payer MEDICARE, SELFPAY ==
[2021-02-04 14:07] LABS: COVID19 -Nasal RAPID Negative (Negative)
== END ==
PROVIDERS: PCP Student in an Organized Health Care Education/Training Program; Visit Provider Nurse Practitioner Family
DX: Z01.812 Encounter for preprocedural laboratory examination (principal); Z20.822 Contact with and (suspected) exposure to COVID-19
CPT/HCPCS: 87635; C9803

== ENCOUNTER → 2021-02-13 11:14 | Outpatient (CLI) | payer MEDICARE, SELFPAY ==
--- NOTE | 2021-02-13 | DI.MG.S_ITS ---
BILATERAL DIGITAL SCREENING MAMMOGRAM 3D/2D WITH CAD: 02/13/2021 CLINICAL: Routine screening. Breast cancer. Comparison is made to exams dated: 12/22/2019 mammogram, 10/20/2018 mammogram, and 06/25/2017 mammogram - . The tissue of both breasts is heterogeneously dense. This may lower the sensitivity of mammography. Current study was also evaluated with a Computer Aided Detection (CAD) system. There are benign post operative findings in the right breast. No significant masses, calcifications, or other findings are seen in either breast. There has been no significant interval change. IMPRESSION: BENIGN There is no mammographic evidence of malignancy. A 1 year screening mammogram is recommended. This exam was interpreted at Station ID: [id number]. NOTE: For mammograms, a report in lay terms will be sent to the patient. Approximately 15% of breast malignancies will not be visualized mammographically. In the management of a palpable breast mass, a negative mammogram must not discourage biopsy of a clinically suspicious lesion. Electronically Signed By: Agustin laureano/darian:02/13/2021 14:13:03 copy to: KYLA[facility] BECK letter sent: Normal Exam ACR BI-RADS Category 2: Benign Finding(s) 3342F
== END ==
PROVIDERS: PCP Student in an Organized Health Care Education/Training Program; Referring Provider Internal Medicine; Visit Provider Internal Medicine
DX: Z12.31 Encounter for screening mammogram for malignant neoplasm of breast (principal); Z85.3 Personal history of malignant neoplasm of breast
CPT/HCPCS: 77063; 77067

== ENCOUNTER → 2021-04-03 11:10 | Outpatient (CLI) | payer MEDICARE, SELFPAY ==
[2021-04-03 13:11] LABS: COVID19 -Nasal RAPID Negative (Negative)
== END ==
PROVIDERS: PCP Student in an Organized Health Care Education/Training Program; Visit Provider Physician Assistant
DX: Z20.822 Contact with and (suspected) exposure to COVID-19 (principal)
CPT/HCPCS: 87635; C9803

== ENCOUNTER 2021-04-05 13:54 | Day surgery (SDC) | payer MEDICARE, SELFPAY ==
--- NOTE | 2021-04-05 12:09 | P.HP_ITS ---
History of Present Illness History of Present Illness Date Patient Seen: 04/05/21 Chief complaint: SCREENING COLONOSCOPY Narrative: 80 year old female comes in today for consideration of a screening colonoscopy. Two lifetime colonoscopies, both normal. Last colonoscopy on 10/07/[address] Conklin in [place], [place] was significant for internal hemorrhoids, 10 year recall recommended. There have been no lower GI symptoms suggesting disease such as change in bowel habits, bleeding, abdominal pain or anemia. There's been no family history of colon cancer or colon polyps. Overall health issues have been stable, including no major cardiac events for at least 6 weeks. PCP: Dr. Lucero Past Medical History: Breast Cancer right sided Hyperlipidemia Recurrent UTI's Depression Mitral heart prolapse Hyothyroidism GERD with Schatzki ring Anxiety HTN Urinary incontinence Squamous cell cancer Internal hemorrhoids Past Surgical History: Hysterectomy 1992 Lumpectomy 2012 Mohs surgery, Squamous cell [place], [facility], 2020 Colonoscopy, 2010, normal Family History: Father: @ 68- heart failure Mother: @ 83 heart failure, depression Siblings: Trevon @ 55 heart failure Child: history of stroke Social History: Marital Status: Children: 2 daughters Occupation: retired Education: 16yrs Patient History Medical History (Updated 04/12/19 @ 11:19 by Maria R Dillard MD) Anterolisthesis Concussion Cystocele Depression GERD (gastroesophageal reflux disease) Hormone receptor positive breast cancer (2013) Hypertension Hyperthyroidism (2012) Hypothyroidism Lumbar spondylosis Migraine headache Postmenopausal Rectocele OLVIN (stress urinary incontinence, female) Urge incontinence Uterine prolapse Surgical History History of lumpectomy (2013) Family & Social History Social History: household members none Tobacco & Substance use: Smoking Status Former smoker alcohol intake current alcohol intake frequency 0-2 drinks per day Substance Use Type does not use Meds Home Medications and Allergies Home Medications Medication Instructions Recorded Confirmed Type bupropion HCl 100 mg tablet,12 hr 100 mg PO BID #0 each 07/21/18 04/05/21 History sustained-release (Wellbutrin SR) Allergies Allergy/AdvReac Type Severity Reaction Status Date / Time Sulfa (Sulfonamide Allergy Mild FEELS Verified 04/05/21 14:43 Antibiotics) LIKE BLOOD IS BOILING Review of Systems Review of Systems Narrative: All remaining ROS were reviewed and negative except as addressed. Exam Narrative Exam Narrative: GENERAL: Alert and oriented, appearing stated age and in no acute distress. HEENT: Head normocephalic/atraumatic. Extraocular movements intact. LUNGS: Clear to ausculation bilaterally, no wheezes, rhonchi or rales. CV: Normal S1 and S2 with regular rate and rhythm, no audible murmurs, rubs or gallops. ABDOMEN: Soft, non-tender, non-distended, no organomegaly. Positive bowel sounds. EXTREMITIES: No clubbing, cyanosis, or edema. NEURO: Cranial nerves II through XII grossly intact, no focal deficits. PSYCH: Alert and oriented x 3. SKIN: No concerning lesions. Assessment & Plan Assessment & Plan narrative: 1. Screening for colon cancer Plan for colonoscopy. The nature and character of the procedure as well as anticipated results were discussed. The possibility of not completing the procedure was also discussed. Possible complications including aspiration pneumonia, bleeding, perforation and reaction to medications either for sedation or preparation and missed lesions were discussed. Questions were answered and proceeding to the colonoscopy was elected. Informed consent signed. I sincerely appreciate the referral allowing me to participate in this patient's care. Please contact me with any questions or concerns. Time Spent With Patient Critical Care time: I spent a total of [] minutes of critical care time on this patient's care today; this time is exclusive of procedural time.
--- NOTE | 2021-04-05 12:14 | PM.OP.COLON ---
Procedure Notes SCOAP/Timeout: 3:25 p.m. Procedure in detail: ENDOSCOPIST: Alice Lucero MD Sedation RN: Imani Gan RN Sedation start time: 3:26 p.m. Sedation end time: 3:47 p.m. PROCEDURE: Colonoscopy INDICATIONS: 1. Screening for colon cancer MEDICATION: Levsin 0.125 mg sublingual, incremental doses of Versed and fentanyl until appropriate level sedation achieved. ASA CLASS: 2 CECAL WITHDRAWAL TIME: 9 minutes COMPLICATIONS: None. EXTENT OF PROCEDURE: Cecum. QUALITY OF PREP: Good with portions of liquid stool. PROCEDURE: Prior to insertion of the colonoscope, a digital rectal examination was accomplished with circumferential palpation of the distal rectal mucosa without significant findings being noted. The high-definition pediatric colonoscope was passed into the rectum in the usual fashion and advanced over to the cecum without difficulty. The ileocecal valve, appendiceal stoma, and medial wall all could be inspected and no abnormalities were seen. ASCENDING COLON: As the colonoscope was withdrawn, care was taken to expose and inspect the haustral folds and no abnormalities were seen. HEPATIC FLEXURE: Normal, no polyps, diverticula or other abnormalities. TRANSVERSE COLON: Normal, no polyps, diverticula or other abnormalities. DESCENDING COLON: Normal, no polyps, diverticula or other abnormalities. SIGMOID COLON: Normal, no polyps, diverticula or other abnormalities. RECTUM: Normal. J maneuver was produced. There was no significant perianal disease. The J maneuver was broken. The remainder of the rectum was inspected and there was no external hemorrhoid disease. The scope was withdrawn. IMPRESSION: 1. Normal colonoscopy PLAN: 1. Secondary to age, this can be patient's last screening colonoscopy. The possibility of a missed lesion including a malignancy has been discussed with the patient previously. Potential alarm symptoms have been discussed and should be reported immediately.
[2021-04-05] MEDS: LACTATED RINGERS 1,000 ML 200 ML IV (14:43)
[2021-04-05] MEDS: HYOSCYAMINE 0.125 MG TABLET PO (14:43)
[2021-04-05 14:46] VITALS: BP 177/90; PULSE 62; RESP 18; TEMP 36.6; O2SAT 98; BMI 22.8
[2021-04-05] MEDS: fentaNYL 250 MCG/5 ML INJ IV (15:33)
[2021-04-05] MEDS: MIDAZOLAM 5 MG/5 ML VIAL IV (15:33)
[2021-04-05 15:49] VITALS: BP 116/67; PULSE 66; RESP 16; O2SAT 98
[2021-04-05 15:55] VITALS: BP 133/75; PULSE 61; RESP 16; O2SAT 96
[2021-04-05 16:00] VITALS: BP 114/84; PULSE 64; RESP 12; O2SAT 98
[2021-04-05 16:05] VITALS: BP 111/81; PULSE 59; RESP 17; O2SAT 98
== END 2021-04-05 16:35 | disposition home or self-care (01) ==
PROVIDERS: PCP Student in an Organized Health Care Education/Training Program; Referring Provider Student in an Organized Health Care Education/Training Program; Visit Provider Student in an Organized Health Care Education/Training Program
PROC: 0DJD8ZZ Inspection of Lower Intestinal Tract, Via Natural or Artificial Opening Endoscopic (ICD-10-PCS; CPT 45378; principal; 2021-04-05 15:15)
DX: Z12.11 Encounter for screening for malignant neoplasm of colon (principal); E78.5 Hyperlipidemia, unspecified; E03.9 Hypothyroidism, unspecified; K21.9 Gastro-esophageal reflux disease without esophagitis; F41.9 Anxiety disorder, unspecified; I10 Essential (primary) hypertension
CPT/HCPCS: G0121; J2250; J3010

== ENCOUNTER → 2021-06-12 13:57 | Outpatient (CLI) | payer MEDICARE, SELFPAY ==
--- NOTE | 2021-06-12 | DI.RAD.S_ITS ---
PROCEDURE: XR CHEST 2V INDICATIONS: Other congenital malformations of diaphragm TECHNIQUE: 2 views of the chest were acquired. COMPARISON: [facility], CR, XR CHEST 2V, 10/06/2019, 11:55. FINDINGS: Surgical changes and devices: Right breast surgical clips. Lungs and pleura: Lungs are clear. No pleural effusions or pneumothorax. Mild elevation right hemidiaphragm redemonstrated. Mediastinum: Mediastinal contours are normal. Heart size is normal. Bones and chest wall: No suspicious bony abnormalities. Soft tissues appear unremarkable. IMPRESSION: 1. Mild chronic elevation the right hemidiaphragm. 2. No acute cardiopulmonary disease. Dictated by: Jose E Awan RRA Interpreted: Agustin Cuenca MD on 06/12/2021 at 14:15 Transcribed by: JIM on 06/12/2021 at 14:15 Approved by: Agustin Cuenca M.D. on 06/13/2021 at 1:40
== END ==
PROVIDERS: PCP Student in an Organized Health Care Education/Training Program; Referring Provider Internal Medicine Gastroenterology; Visit Provider Internal Medicine Gastroenterology
DX: Q79.1 Other congenital malformations of diaphragm (principal)
CPT/HCPCS: 71046

== ENCOUNTER → 2022-02-28 15:24 | Outpatient (CLI) | payer MEDICARE, SELFPAY ==
--- NOTE | 2022-02-28 15:26 | DI.MG.S_ITS ---
BILATERAL DIGITAL SCREENING MAMMOGRAM 3D/2D WITH CAD: 02/28/2022 CLINICAL: Routine screening. Personal history of right breast cancer. Comparison is made to exams dated: 02/13/2021 mammogram, 12/22/2019 mammogram, and 10/20/2018 mammogram - [facility]. Both breasts are heterogeneously dense, which may obscure small masses (category c / 51-75% glandular tissue). Current study was also evaluated with a Computer Aided Detection (CAD) system. There are benign post operative findings in the right breast. No significant masses, calcifications, or other findings are seen in either breast. There has been no significant interval change. IMPRESSION: BENIGN There is no mammographic evidence of malignancy. A 1 year screening mammogram is recommended. This exam was interpreted at Station ID: [id number]. NOTE: For mammograms, a report in lay terms will be sent to the patient. Approximately 15% of breast malignancies will not be visualized mammographically. In the management of a palpable breast mass, a negative mammogram must not discourage biopsy of a clinically suspicious lesion. Electronically Signed By: Isauro vick/darian:02/28/2022 16:51:54 copy to: KYLA[facility] BECK letter sent: Normal Exam ACR BI-RADS Category 2: Benign Finding(s) 3342F
== END ==
PROVIDERS: PCP Family Medicine; Referring Provider Family Medicine; Visit Provider Family Medicine
DX: Z12.31 Encounter for screening mammogram for malignant neoplasm of breast (principal); Z85.3 Personal history of malignant neoplasm of breast
CPT/HCPCS: 77063; 77067

== ENCOUNTER → 2022-05-01 11:28 | Outpatient (ROUT) | payer MEDICARE, SELFPAY ==
[2022-05-01 12:53] LABS: Influenza A - CEPHEID Flu A POSITIVE (NEGATIVE); Influenza B - CEPHEID Flu B NEGATIVE (NEGATIVE); Respiratory Syncytial Virus Negative (Negative)
[2022-05-01 12:54] LABS: COVID-19 CEPHEID 4-PLEX PCR Negative (Negative)
== END ==
PROVIDERS: PCP Family Medicine; Visit Provider Registered Nurse
DX: Z20.822 Contact with and (suspected) exposure to COVID-19 (principal)
CPT/HCPCS: 0241U

== ENCOUNTER 2023-02-21 16:34 | Emergency (ER) | payer MEDICARE, SELFPAY ==
[2023-02-21 16:37] VITALS: BP 213/99; PULSE 64; RESP 18; TEMP 36.5; O2SAT 97; BMI 22.8
--- NOTE | 2023-02-21 16:55 | ED.WOUNDLAC ---
HPI - Wound/Laceration General Chief Complaint: Wound/Laceration Stated Complaint: Biopsy t-1, Weeping, Bleeding Time Seen by Provider: 02/21/23 16:38 Source: patient Mode of arrival: Ambulatory History of Present Illness HPI narrative: A 2-year-old female presents for evaluation of bleeding from skin biopsy site. 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 This morning when she woke up she noticed that one of the wounds was ?weeping?. She tried to apply new bandages but it continued to bleed and so she presented for evaluation. Denies use of blood thinners. Related Data Home Medications Medication Instructions Recorded Confirmed bupropion HCl 100 mg tablet,12 hr 100 mg PO DAILY #0 ea 10/29/21 12/23/21 sustained-release (Wellbutrin SR) levothyroxine 25 mcg capsule 25 mcg PO DAILY 10/29/21 12/23/21 Previous Rx's Medication Instructions Recorded nitrofurantoin 100 mg PO BID #14 caps 11/26/21 monohydrate/macrocrystals 100 mg capsule (Macrobid) Allergies Allergy/AdvReac Type Severity Reaction Status Date / Time Sulfa (Sulfonamide Allergy Mild FEELS Verified 12/23/21 09:23 Antibiotics) LIKE BLOOD IS BOILING Review of Systems Review of Systems Narrative: Reports: bleeding, L forearm All other systems negative Patient History Medical History (Updated 02/21/23 @ 17:27 by Giselle Martin MD) Anterolisthesis Concussion Cystocele Depression GERD (gastroesophageal reflux disease) Hormone receptor positive breast cancer (2013) Hypertension Hyperthyroidism (2012) Hypothyroidism Lumbar spondylosis Migraine headache Postmenopausal Rectocele OLVIN (stress urinary incontinence, female) Urge incontinence Uterine prolapse Surgical History History of lumpectomy (2013) Social History household members: none Smoking Status: Former smoker alcohol intake: current Smoking Status: Former smoker alcohol intake frequency: 0-2 drinks per day Substance Use Type: does not use Exam Initial Vital Signs Initial Vital Signs: Vital Signs Temperature 97.7 F 02/21/23 16:37 Pulse Rate 64 02/21/23 16:37 Respiratory Rate 18 02/21/23 16:37 Blood Pressure 213/99 H 02/21/23 16:37 Pulse Oximetry 97 02/21/23 16:37 Oxygen Delivery Method Room Air 02/21/23 16:37 Const: Awake, alert, no acute distress, nontoxic appearing Cardiac: regular rate, regular rhythm RESP: unlabored, clear bilaterally, no wheezing GI: Atraumatic, soft, nontender, nondistended, no rebound, no guarding MSK: Atraumatic, full range of motion, pulses equal Skin: Warm, Dry, skin tear middle dorsal left forearm, no active bleeding Neuro: AO x3, CN II-XII grossly intact, moves all extremities Psych: affect normal, mood normal, not suicidal, not homicidal Course Course Course Narrative: Postprocedural bleeding. When the Band-Aid was removed there was no active bleeding, there appeared to be a 4 cm long skin tear around the biopsy site. A bandage soaked with lidocaine and epinephrine was applied to the area and wrapped with Kerlix. This wound was allowed to soak in the lidocaine with epinephrine for 15-20 minutes and there was no bleeding. A nonadherent dressing was applied to the skin tear and bandaged. Additional dressings sent with patient for home use. Wound care instructions advised. Orders Ordered: Discontinued Medications Lidocaine/Epinephrine (Lidocaine 2% W/Epi Inj) 20 ml INJ INTRA-OP ONE Stop: 02/21/23 16:55 Last Admin: 02/21/23 16:57 Dose: 20 ml Documented By: REILLY Vital Signs Vital signs: Vital Signs - 8 hr 02/21/23 16:37 Temperature 97.7 F Pulse Rate 64 Respiratory Rate 18 Blood Pressure 213/99 H Pulse Oximetry 97 Oxygen Delivery Method Room Air Discharge Plan Departure Patient Disposition: Home Clinical Impression: Skin tear, Bleeding Instructions: DI for Abrasion Prescriptions: No Action bupropion HCl [Wellbutrin SR] 100 mg tablet sustained-release 12 hr 100 mg PO DAILY Qty: 0 nitrofurantoin monohyd/m-cryst [Macrobid] 100 mg capsule 100 mg PO BID Qty: 14 0RF Rx Instructions: must administer with a meal/food levothyroxine 25 mcg capsule 25 mcg PO DAILY Referrals: Maryan Guardado MD [Primary Care Provider] - Stand Alone Forms: Patient Portal/API
[2023-02-21] MEDS: LIDOCAINE 2% W/EPI INJ 20 ML INJ (16:57)
--- NOTE | 2023-02-21 16:58 | PC.NURSE ---
pt had a biopsy yesterday on left FA,pt had a lot of drainage from wound,she removed bandaid and then had a skin tear around the biopsy area.
[2023-02-21 17:31] VITALS: BP 187/89; PULSE 68; RESP 19; TEMP 36.7; O2SAT 98
== END 2023-02-21 17:38 | disposition home or self-care (01) ==
PROVIDERS: Emergency Provider Emergency Medicine; PCP Family Medicine
DX: S51.812A Laceration without foreign body of left forearm, initial encounter (principal); X58.XXXA Exposure to other specified factors, initial encounter
CPT/HCPCS: 99282; 99283

== ENCOUNTER → 2023-02-28 14:35 | Outpatient (CLI) | payer MEDICARE, SELFPAY ==
--- NOTE | 2023-02-28 | DI.MG.S_ITS ---
BILATERAL DIGITAL SCREENING MAMMOGRAM 3D/2D WITH CAD: 02/28/2023 CLINICAL: Routine screening. Personal history of right breast cancer. Family history of breast cancer. Comparison is made to exams dated: 02/28/2022 mammogram, 02/13/2021 mammogram, and 12/22/2019 mammogram - [facility]. Both breasts are heterogeneously dense, which may obscure small masses (category c / 51-75% glandular tissue). Current study was also evaluated with a Computer Aided Detection (CAD) system. There are benign post operative findings in the right breast. No significant masses, calcifications, or other findings are seen in either breast. There has been no significant interval change. IMPRESSION: BENIGN There is no mammographic evidence of malignancy. A 1 year screening mammogram is recommended. This exam was interpreted at Station ID: [id number]. NOTE: For mammograms, a report in lay terms will be sent to the patient. Approximately 15% of breast malignancies will not be visualized mammographically. In the management of a palpable breast mass, a negative mammogram must not discourage biopsy of a clinically suspicious lesion. Electronically Signed By: Celena prado/darian:03/02/2023 13:05:33 copy to: KYLA[facility] BECK letter sent: Normal Exam ACR BI-RADS Category 2: Benign Finding(s) 3342F
== END ==
PROVIDERS: PCP Family Medicine; Referring Provider Internal Medicine; Visit Provider Internal Medicine
DX: Z12.31 Encounter for screening mammogram for malignant neoplasm of breast (principal); Z80.3 Family history of malignant neoplasm of breast; Z85.3 Personal history of malignant neoplasm of breast
CPT/HCPCS: 77063; 77067

== ENCOUNTER → 2023-05-12 09:32 | Outpatient (CLI) | payer MEDICARE, SELFPAY ==
--- NOTE | 2023-05-12 | DI.ECHO.S_ITS ---
[facility] +---------+ : : [address] [place] : : : : [id number] : : : : Phone: [phone]+ Echocardiogram Report + + :Name: MARY ECHEVERRIA Study Date: 05/12/2023 Height: 65 in : :[facility] ReadingLocation: Weight: 135 lb : : Gender: Female BSA: 1.7 m2 : :: 1940 Age: 82 yrs BP: 138/82 mmHg: :Reason For Study: Mitral Valve- Regurgitation : : Performed By: Gricelda Armas : :Referring: GAIL VANG : + + Interpretation Summary The left ventricle is normal in size. The left ventricular ejection fraction is normal. The ejection fraction is estimated to be 60-65%. No significant change in LVEF from the previous study. The right ventricle is normal in size and function. There is mild mitral regurgitation. There is mild to moderate tricuspid regurgitation. The right ventricular systolic pressure is estimated to be at least 39 mmHg based on an estimated right atrial pressure of 3 mm Hg. Compared to the prior echo exam, there has been an increase in TR severity. Compared to the prior echo exam, there has been an increase in the severity of pulmonary hypertension. There is mild to moderate pulmonic regurgitation. This is Increased compared to the previous study. Procedure: A two-dimensional transthoracic echocardiogram with color flow and Doppler was performed. The study quality was technically adequate. Comparison is made with the echocardiogram of 10-14-19. The heart rate ranged between 66-69 bpm during the study. The patient was in normal sinus rhythm during the exam. Left Ventricle: The left ventricle is normal in size. Proximal septal thickening is noted. There is no echo evidence for significant left ventricular outflow tract obstruction. There is no thrombus. The ejection fraction is estimated to be 60-65%. The left ventricular ejection fraction is normal. There are no focal wall motion abnormalities. Diastolic parameters suggest a relaxation abnormality of the left ventricle, consistent with probable normal filling pressures. Right Ventricle: The right ventricle is normal in size and function. Atria: The left atrial size is normal. There has been no significant change since the previous study. Right atrial size is normal. The interatrial septum grossly appears intact with no obvious evidence for an atrial septal defect. The thickening of interatrial septum suggests lipomatous hypertrophy. Mitral Valve: The mitral valve leaflets appear mildly thickened, but open well. There is a flat closure plane of the the mitral valve leaflets. The mitral valve leaflets are mildly calcified. Redundant elongated chordae are noted. There is mild mitral regurgitation. Aortic Valve: The aortic valve is trileaflet. The aortic valve opens well. The aortic valve is slightly calcified. There is no aortic valve stenosis. No aortic regurgitation is present. Tricuspid Valve: The tricuspid valve leaflets are thickened and/or calcified, but open well. There is mild to moderate tricuspid regurgitation. The right ventricular systolic pressure is estimated to be at least 39 mmHg based on an estimated right atrial pressure of 3 mm Hg. Compared to the prior echo exam, there has been an increase in TR severity. Compared to the prior echo exam, there has been an increase in the severity of pulmonary hypertension. Pulmonic Valve: The pulmonic valve leaflets appear thickened, but open well. There is mild to moderate pulmonic regurgitation. This is Increased compared to the previous study. Great Vessels: The aortic root is normal size. The ascending aorta is at the upper limits of normal in size. The aortic arch is normal in size. The IVC is of normal diameter and collapses greater than 50% with a sniff. This suggests a low right atrial pressure of 3 mm Hg. Pericardium/ Pleura There is no pericardial effusion. There is an anterior echo-free space consistent with a fat pad. There is no pleural effusion. MMode/2D Measurements & Calculations LVIDd: 4.5 cm LVOT diam: 1.7 cm LVIDs: 2.8 cm Ao root diam: 3.9 cm FS: 38.7 % asc Aorta Diam: 3.5 cm EPSS: 0.17 cm Ao Arch Diam (Prox Trans): 2.3 cm IVSd: 0.85 cm LVPWd: 0.79 cm LV clarke. diameter/BSA (cm/m^2): 2.7 LV sys. diameter/BSA (cm/m^2): 1.7 LA A2 area: 18.5 cm2 RA long axis: 4.7 cm LA A4 area: 17.5 cm2 RA area: 11.7 cm2 LA length (vol): 5.1 cm RA vol: 24.9 ml LA vol: 54.1 ml RA : 14.9 ml/m2 LA vol index: 32.3 ml/m2 IVC diam: 2.0 cm RVD1 (basal): 3.1 cm Doppler Measurements & Calculations Ao V2 max: 131.9 cm/sec LVOT Max Gustavo: 99.2 cm/sec Ao V2 mean: 92.4 cm/sec LV V1 max P.9 mmHg Ao max P.0 mmHg LV V1 VTI: 24.5 cm Ao mean P.8 mmHg SHWETA(I,D): 1.6 cm2 Ao V2 VTI: 33.5 cm SHWETA(V,D): 1.7 cm2 sev ratio: 0.73 SHWETA indexed to BSA (cm^2/m^2): 0.97 MV E max gustavo: 76.7 cm/sec TR max gustavo: 298.6 cm/sec MV A max gustavo: 85.8 cm/sec TR max P.7 mmHg MV E/A: 0.89 PA V2 max: 70.6 cm/sec Med Peak E' Gustavo: 6.3 cm/sec PA V2 mean: 52.7 cm/sec E/E' med: 12.3 PA mean P.2 mmHg Lat Peak E' Gustavo: 6.3 cm/sec PA pr(Accel): 13.9 mmHg E/E' lat: 12.2 E/e' average: 12.2 MV dec time: 0.26 sec SV(LVOT): 54.6 ml Reading Physician:05:36 PM
--- NOTE | 2023-05-12 23:53 | DI.NM.S_ITS ---
DATE OF SERVICE: 05/12/2023 PROCEDURE PERFORMED: Exercise treadmill stress and rest myocardial perfusion imaging with gating to assess ejection fraction and regional wall motion. ORDERING PROVIDER: LISY Bay. INDICATIONS: The patient is an 82-year-old female with fatigue and possible symptoms of long COVID . EXERCISE TREADMILL TESTING: The patient was able to exercise for 7 minutes, 11 seconds on a standard Tk protocol suggesting exceptional exercise capacity with an SUJIT of -54%, achieving 10.1 METS. She had a normal heart rate and blood pressure response to exercise, achieving a maximum heart rate of 138 BPM (99% of her predicted maximum). She had no chest discomfort or other anginal symptoms. Her resting ECG is normal except for very subtle, nonspecific ST-segment abnormalities in the inferolateral leads which became slightly accentuated with stress but remained subtle and nonspecific. There were rare isolated PVCs and PACs with very brief runs of atrial tachycardia at peak exercise and early recovery, but no sustained or complex arrhythmias. At 6 minutes, 10 seconds of exercise, at a heart rate of 119 BPM, 26.0 millicuries of technetium-99m Myoview was injected and she was imaged 10 minutes later using a gated SPECT acquisition protocol. Earlier in the day, while at rest, she had been injected with 11.2 millicuries of technetium-99m Myoview and was imaged 15 minutes later, again using a gated SPECT acquisition protocol. FINDINGS: 1. Raw data: There is fairly good myocardial tracer uptake although with some mild breast attenuation noted. The lung/heart ratio is normal at 0.30 with a normal TID ratio of 0.93. 2. Quantitative gated SPECT: Post-stress ejection fraction is estimated at 84% without any focal wall motion abnormality. Resting ejection fraction is 79% with a normal resting end-diastolic volume of 66 mL. 3. Myocardial perfusion imaging: Post-stress supine images show a fairly normal myocardial perfusion pattern with a subtle defect at the base of the inferior wall that completely resolves on prone imaging, consistent with diaphragmatic attenuation artifact. There are no other perfusion defects. The resting images show a similar perfusion pattern without any obvious areas of improvement. IMPRESSION: 1. Normal myocardial perfusion study. 2. Mild, fixed inferior defect consistent with diaphragmatic attenuation artifact but no evidence for myocardial ischemia or previous myocardial infarction. 3. Normal left ventricular size and systolic function without any focal wall motion abnormality. 4. Exceptional exercise capacity without angina or significant ECG evidence of ischemia. She had rare PACs and PVCs with only fleeting episodes of atrial tachycardia but no concerning arrhythmias. Berenice, Briseida - MOHINDER/noe/JASON doc#: [id number]/job#: [id number] dd: 05/12/2023 16:17:00 dt: 05/12/2023 23:37:00 DICTATING MD/COPIES TO: Mejia Conklin MD; Maria Guadalupe Shaver NP COPIES MNE: PHUONG;
== END ==
PROVIDERS: PCP Registered Nurse; Referring Provider Registered Nurse; Visit Provider Registered Nurse
DX: I08.1 Rheumatic disorders of both mitral and tricuspid valves (principal); R53.83 Other fatigue; Z85.3 Personal history of malignant neoplasm of breast; R06.09 Other forms of dyspnea
CPT/HCPCS: 78452; 93017; 93306; A9502

== ENCOUNTER → 2024-05-24 12:22 | Outpatient (ROUT) | payer MEDICARE, SELFPAY ==
[2024-05-24 13:30] LABS: COVID-19 CEPHEID 4-PLEX PCR Negative (Negative); Influenza A - CEPHEID Flu A NEGATIVE (NEGATIVE); Influenza B - CEPHEID Flu B NEGATIVE (NEGATIVE); Respiratory Syncytial Virus Negative (Negative)
== END ==
PROVIDERS: PCP Registered Nurse; Visit Provider Registered Nurse
DX: R05.1 Acute cough (principal)
CPT/HCPCS: 0241U